=== PATIENT | male | born 1940 | race Caucasian/White ===

== ENCOUNTER 2019-08-08 08:43 | Day surgery (SDC) | payer MEDICARE, BC, SELFPAY ==
[2019-08-07 17:04] VITALS: BMI 25.8
[2019-08-08 09:07] VITALS: BMI 25.4
--- NOTE | 2019-08-08 10:25 | P.PN_ITS ---
Pre-Anesthetic Assessment Pre-Anesthetic Assessment: Height/Weight: Height 1.74 m Weight 77.111 kg Proposed Procedure: Operation Date: 08/08/19 10:30 Proposed Procedures p EGD(Not Applicable) - Wyatt Nielson M.D s Bronchoscopy w/ bronchoalveolar lavage(Not Applicable) - Wyatt Nielson M.D Last intake: Intake Last Liquid Date 08/07/19 Last Liquid Time 19:00 Last Solid Date 08/07/19 Last Solid Time 17:00 Social: Social History: Alcohol and No tobacco Exam: Pre-Anes Outpt Exam: alert, oriented x 3, clear to auscultation bilaterally and regular rate & rhythm Airway: Submandibular: WNL Cervical ROM: Other (decreased) MP: 2 Dentition: Full History/ROS: No significant history except as noted Pulmonary: Pulmonary: Cough CV/HEM: CV/HEM: HTN and Murmur Comments: aortic regurg Musc/skel: Comments: parkinsons Neuropsych: Neuropsych: Dementia Anesthetic Plan: ASA status: III Anesthesia: Anesthesia Evaluation and General Risk of > 500 ml blood loss (7ml/kg in children): No PFSH Anesthesia 2 PFSH: Medical History (Updated 08/08/19 @ 10:26 by Piter Chadwick MD) Anxiety (Acute) Aortic regurgitation (Acute) Basal cell carcinoma (Acute) Bursitis (Acute) Dyslipidemia (Acute) Hypercholesteremia (Acute) Hypertension (Acute) Mild cognitive impairment (Acute) YORDY on CPAP (Acute) Pituitary macroadenoma (Acute) Prostate CA (Acute) Rectal fistula (Acute) SOB (shortness of breath) on exertion (Acute) Surgical History (Updated 08/08/19 @ 10:26 by Piter Chadwick MD) H/O shoulder surgery (Acute) History of back surgery (Acute) History of vocal cord polypectomy (Acute) Family History (Updated 08/07/19 @ 16:51 by Maricel Raymond) Other Alzheimer disease Parkinson disease Social History (Updated 08/07/19 @ 16:51 by Maricel Raymond) Smoking and tobacco status: former smoker Data Anesthesia Cardiac Studies: No Data to Display
[2019-08-08 10:40] VITALS: BP 143/94; PULSE 73; RESP 18; TEMP 36.3; O2SAT 97
--- NOTE | 2019-08-08 10:41 | PM.HPUD ---
H&P update H&P Update: DATE OF SURGERY/PROCEDURE: 08/08/19 DATE H&P PERFORMED: 07/11/19 H&P UPDATE INFORMATION: H&P completed within last 30 days and No changes to prior documentation PLANNED PROCEDURE: Operation Date: 08/08/19 10:30 Proposed Procedures p EGD(Not Applicable) - Wyatt Nielson M.D s Bronchoscopy w/ bronchoalveolar lavage(Not Applicable) - Wyatt Nielson M.D Full H&P Perinent History: Medical/Surgical History: Medical History (Updated 08/08/19 @ 10:26 by Piter Chadwick MD) Anxiety (Acute) Aortic regurgitation (Acute) Basal cell carcinoma (Acute) Bursitis (Acute) Dyslipidemia (Acute) Hypercholesteremia (Acute) Hypertension (Acute) Mild cognitive impairment (Acute) YORDY on CPAP (Acute) Pituitary macroadenoma (Acute) Prostate CA (Acute) Rectal fistula (Acute) SOB (shortness of breath) on exertion (Acute) Family History: Family History (Updated 08/07/19 @ 16:51 by Maricel Raymond) Other Alzheimer disease Parkinson disease Social History: Social History Smoking and tobacco status: former smoker
[2019-08-08] MEDS: sodium chloride 0.9% 1,000 ML 30 ML IV (10:45)
--- NOTE | 2019-08-08 11:18 | PM.OP ---
Operative Report Post-Operative Note: Date of procedure: 08/08/19 Preop Diagnosis: Dysphasia, coughdysphagia, cough Post-op diagnosis: same Post-op Findings: Gastritis with ulceration, cricopharyngeal achalasia Procedure Done: EGD with biopsy distal esophagus and gastric mucosa, flexible fiberoptic bronchoscopy with bronchoalveolar lavage, dilation of esophagus with 58 Frisian dilator Specimens removed/disposition: Biopsy gastric and esophagus Surgeon: Wyatt Nielson Anesthesia: general Complications: None Findings: Gastritis with ulcer, stricture cricopharyngeus Condition: stable Disposition: PACU Operative Report: Brief History: Mr. Weinberg is a 78-year-old male with a known history of Parkinson's who presented with chief complaint of cough aspiration and dysphasia. I discussed the goals risks and alternatives and informed consent was obtained to proceed with surgical evaluation. Procedure: The patient was taken to the operating room and under satisfactory general endotracheal anesthesia the bronchoscope was introduced into the trachea. Right and left bronchopulmonary segments 1 through 10 were examined. The exam was unremarkable. A bronchoalveolar lavage was performed from the right lower lobe and sent for lipid-laden macrophage alone. The gastroscope was then introduced into the post cricoid area. There was a tight stricture at the cricopharyngeus. The esophagus stomach and duodenum were examined the duodenal mucosa were normal there was some hypermotility of the esophageal mucosa with mild distal esophagitis. The gastric mucosa was markedly inflamed with several punctate ulcerations. The valve was normal. Biopsy was taken of the esophagus x2. A biopsy was taken of the distal esophagus x1. Both specimens were sent to pathology. No complications occurred. The patient was then dilated to a 58 Frisian with bougie dilator. A second look revealed no perforation. He was allowed awaken and taken to recovery room where he was observed. During the observation time postoperative care instructions and counseling including detailed written and verbal instruction given to the patient and his . Once both parties verbalized understanding of all instructions and once the patient met discharge criteria he was discharged in satisfactory and stable condition. Coding Level of Care Code Acute Treasury Director for Hammad Toro
[2019-08-08 11:24] VITALS: BP 124/101; PULSE 80; RESP 16; TEMP 36.4; O2SAT 99
[2019-08-08 11:30] VITALS: BP 139/84; PULSE 71; RESP 20; O2SAT 95
[2019-08-08 11:35] VITALS: BP 144/104; PULSE 82; RESP 22; TEMP 36.4; O2SAT 93
--- NOTE | 2019-08-08 11:35 | SUR.PHASEI ---
1124- RECEIVED PATIENT IN PACU FROM OR VIA [facility]. RESP ARE EVEN AND NONLABORED. SIMPLE MASK APPLIED AT 6LPM, SAT 99%. HE IS AWAKE AND ALERT. NO S/S PAIN OR NAUSEA
[2019-08-08 11:48] VITALS: BP 138/87; PULSE 77; RESP 18; TEMP 36.4; O2SAT 93
--- NOTE | 2019-08-08 12:14 | SUR.PHASEI ---
1140- TRANSFERRED PATIENT FROM PACU TO OPS VIA GURNEY. RESP ARE EVEN AND NONLABORED. SAT 93% WITH ROOM AIR. HE IS AWAKE AND ALERT. NO S/S PAIN OR NAUSEA. INTERMITTENT PRODUCTIVE COUGH NOTED. HE IS ABLE TO EXPECTORATE WITHOUT DIFFICULTY. TRANSITION OF CARE TO [facility] BRASWELL
--- NOTE | 2019-08-08 12:14 | SUR.PHASEII ---
PATIENT'S FAMILY SAID WANTED TO SEE HIM ON A FOLLOWUP VISIT. OFFICE CALLED AND AND F/U APPOINTMENT FOR AT 11:00
--- NOTE | 2019-08-08 12:17 | SUR.PHASEII ---
OFFICE OF DR. SHULTZ CALLED BACK AND SAID PATIENT HAS AN APPOINTMENT ON AT 1:30
[2019-08-08 12:28] VITALS: BP 139/79; PULSE 80; RESP 18; O2SAT 95
--- NOTE | 2019-08-08 13:47 | ANE.PACU ---
 Inpatient post-anesthesia follow up: Airway intact: Yes Vital signs: Temperature 97.6 F Pulse Rate [Bilate ral Radial] 80 Respiratory Rate 18 Blood Pressure [Ri ght Arm] 139/79 Blood Pressure [Le ft Arm] 143/94 Pulse Oximetry 95 Oxygen Delivery Me thod Room Air Oxygen Flow Rate 6 Fraction of Inspir ed Oxygen Hydration adequate: Yes Nausea and vomiting: No Mental status: Baseline
== END 2019-08-08 12:35 | disposition home or self-care (01) ==
PROVIDERS: Family Provider Family Medicine; PCP Family Medicine; Visit Provider Otolaryngology
PROC: 0DJ08ZZ Inspection of Upper Intestinal Tract, Via Natural or Artificial Opening Endoscopic (ICD-10-PCS; CPT 43235; principal; 2019-08-08 10:30)
PROC: 0BJ08ZZ Inspection of Tracheobronchial Tree, Via Natural or Artificial Opening Endoscopic (ICD-10-PCS; CPT 31622; 2019-08-08 10:30)
DX: R13.10 Dysphagia, unspecified (principal); R05 Cough; K29.70 Gastritis, unspecified, without bleeding; K25.9 Gastric ulcer, unspecified as acute or chronic, without hemorrhage or perforation; E78.00 Pure hypercholesterolemia, unspecified; I10 Essential (primary) hypertension; G47.33 Obstructive sleep apnea (adult) (pediatric); Z80.42 Family history of malignant neoplasm of prostate; E78.5 Hyperlipidemia, unspecified; G20 Parkinson's disease
CPT/HCPCS: 31624; 43239; 43249; 80500; 88305; J0330; J1100; J2001; J2405; J2704; J3010; J3490; J7030

== ENCOUNTER → 2019-08-30 12:57 | Outpatient (BNVA) | payer MEDICARE, BC, SELFPAY | PROVIDERS: Family Provider Family Medicine; PCP Family Medicine; Referring Provider Family Medicine; Visit Provider Otolaryngology | DX: R13.10 Dysphagia, unspecified (principal); J31.0 Chronic rhinitis | CPT/HCPCS: 99213; 99214 ==

== ENCOUNTER 2019-09-06 15:39 | Outpatient (CLI) | payer MEDICARE, BC, SELFPAY ==
--- NOTE | 2019-09-06 | XR_ITS ---
WS: [id number] PROCEDURE: XR chest 2V* [id number] CLINICAL INFORMATION: EXCESSIVE SLEEPINESS, DIZZINESS, SOB, COUGH COMPARISON: 015 FINDINGS: Heart: Normal cardiac silhouette. Tortuous calcified thoracic aorta. Lungs: Moderate chronic emphysematous changes. No acute pulmonary infiltrates. Bones: Hypertrophic changes thoracic spine. XR/XR chest 2V* [id number] IMPRESSION: No acute chest findings.
== END 2019-09-06 15:40 | disposition home or self-care (01) ==
LOC: RADOUTREAD 15:43
PROVIDERS: Family Provider Family Medicine; PCP Family Medicine; Visit Provider Family Medicine
DX: Z76.89 Persons encountering health services in other specified circumstances (principal)

== ENCOUNTER 2019-09-29 20:00 | Outpatient (CLI) | payer MEDICARE, BC, SELFPAY | END 2019-09-29 20:01 | disposition home or self-care (01) | LOC: SLEEP 10-02 08:03 | PROVIDERS: Family Provider Family Medicine; PCP Family Medicine; Visit Provider Family Medicine | DX: G47.33 Obstructive sleep apnea (adult) (pediatric) (principal) | CPT/HCPCS: 95810; 95811 ==

== ENCOUNTER 2020-05-08 14:31 | Inpatient (IN) | payer MEDICARE, BC, SELFPAY ==
[2020-05-08 14:33] VITALS: BP 139/75; PULSE 75; RESP 18; TEMP 36.4; O2SAT 98; BMI 24.1
[2020-05-08 15:13] LABS: Basophils # 0.1 10^3/uL (0.0-0.1); Eosinophils # 0.1 10^3/uL (0.0-0.8); Eosinophils % 0.6 %; Hematocrit 29.7 % (42.0-52.0); Hemoglobin 8.5 g/dL (11.7-16.6); Lymphocytes # 1.8 10^3/uL (0.8-4.8); Lymphocytes % 20.8 %; Mean Corpuscular HGB Conc 28.6 g/dL (30.0-36.0); Mean Corpuscular Hemoglobin 21.1 pg (28.0-34.0); Mean Corpuscular Volume 73.7 fL (80-94); Mean Platelet Volume 9.9 fL (7.4-10.4); Monocytes # 0.6 10^3/uL (0.2-0.9); Monocytes % 7.6 %; Neutrophils # 5.87 10^3/uL (1.8-7.7); Neutrophils % 69.8 %; Nucleated Red Blood Cells % 0 %; Platelet Count 211 10^3/cmm (130-400); Red Blood Count 4.03 10^6/uL (4.1-5.3); Red Cell Distribution Width 17.8 % (12.1-15.1); White Blood Count 8.4 10^3/uL (4.0-10.0)
[2020-05-08 15:31] LABS: Alanine Aminotransferase 8 U/L (0-41); Alkaline Phosphatase 64 IU/L (40-130); Anion Gap 15.2 (5-19); Aspartate Amino Transferase 11 U/L (0-40); Blood Urea Nitrogen 32 mg/dL (8-23); Calcium 8.8 mg/dL (8.5-10.5); Carbon Dioxide 23 mmol/L (22-29); Chloride 105 mmol/L (98-107); Globulin 1.8 g/dL (1.3-4.6); Glucose 115 mg/dL (65-115); Osmolality Calculated 296 mOsm/kg (285-295); Potassium 4.2 mmol/L (3.5-5.1); Sodium 139 mmol/L (136-145); Total Bilirubin 0.2 mg/dL (0.15-1.2); Total Protein 5.8 g/dL (6.6-8.7)
--- NOTE | 2020-05-08 15:49 | CTR_ITS ---
PROCEDURE INFORMATION: Exam: CT Abdomen And Pelvis With Contrast Exam date and time: 05/08/2020 3:50 PM Age: 79 years old Clinical indication: Other: Gi bleed; Prior surgery; Surgery type: Spine; Patient HX: Decreased hemoglobin with tarry stools. ; Additional info: Abd pain TECHNIQUE: Imaging protocol: Computed tomography of the abdomen and pelvis with intravenous contrast. Radiation optimization: All CT scans at this facility use at least one of these dose optimization techniques: automated exposure control; mA and/or kV adjustment per patient size (includes targeted exams where dose is matched to clinical indication); or iterative reconstruction. Contrast material: OMNI 300; Contrast volume: 95 ml; Contrast route: INTRAVENOUS (IV); COMPARISON: No relevant prior studies available. RADIATION DOSE METRICS: Total DLP (mGy-cm): 525.36 FINDINGS: Liver: There is a right liver cyst measuring 7.2 x 6.6 cm. Gallbladder and bile ducts: Normal. No calcified stones. No ductal dilation. Pancreas: Normal. No ductal dilation. Spleen: Normal. No splenomegaly. Adrenals: Normal. No mass. Kidneys and ureters: There are bilateral benign renal cysts. The there is calcification in the inferior left kidney. No hydronephrosis. Stomach and bowel: Unremarkable. No obstruction. No mucosal thickening. Appendix: No evidence of appendicitis. Intraperitoneal space: Unremarkable. No free air. No significant fluid collection. Vasculature: Unremarkable. No abdominal aortic aneurysm. Lymph nodes: Unremarkable. No enlarged lymph nodes. Urinary bladder: Unremarkable as visualized. Reproductive: Unremarkable as visualized. Bones/joints: Unremarkable. No acute fracture. Soft tissues: There is fat in the left inguinal canal. CT/CT abdomen pelvis w con* [id number] IMPRESSION: There are no acute concerning abnormalities. COMMENTS: Consistent with the [employer]'s Incidental Findings Committee white paper (J Am Eusebio Radiol 2018): Any incidental renal lesion less than 1 cm or classified as too small to characterize, or any incidental cystic renal lesion characterized as simple-appearing, is likely benign. No follow-up imaging is recommended for these lesions per consensus recommendations based on imaging criteria. Radiation Dose CTDIVOL = (mGy): DLP = 525.36 (mGy-cm)
--- NOTE | 2020-05-08 15:50 | W.ED.GIBLEED ---
HPI - GI Bleed General: Chief complaint: GI Bleed Stated complaint: abnormal labs/possible anemia and stomach bleed Time Seen by Provider: 05/08/20 15:34 History of Present Illness: HPI Narrative: 79-year-old male comes in complaining of dark black tarry stools for the last couple of days. Patient had labs drawn at his primary care doctor and had significant anemia this morning. He had another adult black tarry stool while he was in the waiting room. He has been lightheaded and dizzy and weak feeling as well. He does take Naprosyn on a regular basis twice a day. His hemoglobin in the emergency room is down to 8.5 with a hematocrit of 29.7. He does not list any other blood thinners on his medicine list. MD complaint: other (Black tarry stools) Onset (ago): day(s) Pain Consistency: intermittent and now resolved Severity: mild Relieving factors: none Exacerbating factors: none Context: history of GI bleed Associated symptoms: Reports abdominal pain, nausea and poor appetite; Denies chills, easy bruising, epistaxis, fever(s), headache(s), malaise, other bleeding, rash, syncope, vomiting or weakness Review of Systems Const: Denies: fever(s), chills or malaise ENMT: Denies: epistaxis Card: Denies: syncope Resp: Denies: dyspnea, productive cough or non-productive cough GI: Reports: abdominal pain and nausea; Denies: vomiting : Denies: flank pain, dysuria, urinary frequency or urinary urgency Skin/Breast: Denies: rash Neuro: Denies: headache(s) Jai/Lymph: Denies: easy bruising PFS ED PFSH: Medical History (Updated 05/13/20 @ 15:47 by Dash Butterfield DO) Acute upper gastrointestinal bleeding Anemia Anemia due to GI blood loss Anxiety Aortic regurgitation Basal cell carcinoma Bursitis Dyslipidemia Hypercholesteremia Hypertension Hypertension Mild cognitive impairment YORDY on CPAP Pituitary macroadenoma Prostate CA Rectal fistula Rhinitis SOB (shortness of breath) on exertion Surgical History H/O shoulder surgery History of back surgery History of vocal cord polypectomy Family History Other Alzheimer disease Parkinson disease Social History Smoking and tobacco status: former smoker Physical Exam Const: COMMON NORMALS: no acute distress GENERAL APPEARANCE: cooperative and comfortable ORIENTATION/CONSCIOUSNESS: Yes awake, Yes oriented to person, Yes oriented to place and Yes oriented to time HENMT: COMMON NORMALS: normocephalic, atraumatic and hearing grossly normal bilaterally HEAD & SCALP: normocephalic and atraumatic Eye: COMMON NORMALS: Equal, round and reactive pupils present, EOMs intact bilaterally, conjunctivae normal and no scleral icterus CONJUNCTIVA: Yes conjunctivae normal PUPIL: Yes Equal, round and reactive pupils present Neck/C-Spine: COMMON NORMALS: full ROM, no lymphadenopathy, supple and no JVD Lymph: LYMPHATIC: no lymphadenopathy noted and no lymphedema noted Resp: COMMON NORMALS: normal respiratory effort, No retractions, No use of accessory muscles and clear to auscultation bilaterally AUSCULTATION: clear to auscultation bilaterally Cardio: COMMON NORMALS: no JVD, regular rate, regular rhythm and No murmurs present (Cardio) RATE: regular rate RHYTHM: regular rhythm GI: COMMON NORMALS: Soft to palpation and No hepatosplenomegaly present AUSCULTATION: Yes normoactive bowel sounds PALPATION: Yes Soft to palpation, Yes Tenderness to palpation present (GI) (Epigastric), No Guarding due to palpation present (GI) and Yes No hepatosplenomegaly present Extremity: COMMON NORMALS: normal to inspection, capillary refill normal, no clubbing, cyanosis or edema, no calf tenderness and no pedal edema Neuro: SENSORIUM/ORIENTATION: Yes oriented to person, Yes oriented to place and Yes oriented to time Skin: COMMON NORMALS: no rashes or lesions noted GENERAL SKIN EXAM: no rashes or lesions noted Course Vital Signs: Vital signs: Vital Signs Temperature 97.7 F 05/11/20 16:50 Pulse Rate 86 05/11/20 16:50 Respiratory Rate 18 05/11/20 16:50 Blood Pressure 151/70 05/11/20 16:50 Pulse Oximetry 98 05/11/20 16:50 MDM - GI Bleed MDM Narrative: Medical decision making narrative: Revewied findings with pt and with Dr. Fontaine. Will admit to the floor. Pt will likely need and EGD Lab Data: Labs: Lab Results 05/08/20 05/08/20 05/08/20 Range/Units 15:00 15:00 15:00 WBC 8.4 (4.0-10.0) 10^3/ uL RBC 4.03 L (4.1-5.3) 10^6/u L Hgb 8.5 L (11.7-16.6) g/dL Hct 29.7 L (42.0-52.0) % MCV 73.7 L (80-94) fL MCH 21.1 L (28.0-34.0) pg MCHC 28.6 L (30.0-36.0) g/dL RDW 17.8 H (12.1-15.1) % Plt Count 211 (130-400) 10^3/c mm MPV 9.9 (7.4-10.4) fL Neut % (Auto) 69.8 % Lymph % (Auto) 20.8 % White % (Auto) 7.6 % Eos % (Auto) 0.6 % Baso % (Auto) 1.0 % Neut # (Auto) 5.87 (1.8-7.7) 10^3/u L Lymph # (Auto) 1.8 (0.8-4.8) 10^3/u L White # (Auto) 0.6 (0.2-0.9) 10^3/u L Eos # (Auto) 0.1 (0.0-0.8) 10^3/u L Baso # (Auto) 0.1 (0.0-0.1) 10^3/u L Nucleated RBC % (a uto) 0 % Nucleated RBCs # 0.0 /100WBC PT 13.10 (12.1-14.9) SECO NDS INR 0.96 (0.8-1.2) Sodium 139 (136-145) mmol/L Potassium 4.2 (3.5-5.1) mmol/L Chloride 105 (98-107) mmol/L Carbon Dioxide 23 (22-29) mmol/L Anion Gap 15.2 (5-19) BUN 32 H (8-23) mg/dL Creatinine 1.0 (0.7-1.2) mg/dL GFR Calculation Not Reportable Glucose 115 (65-115) mg/dL Calculated Osmolal ity 296 H (285-295) mOsm/k g Calcium 8.8 (8.5-10.5) mg/dL Total Bilirubin 0.2 (0.15-1.2) mg/dL AST 11 (0-40) U/L ALT 8 (0-41) U/L Alkaline Phosphata se 64 (40-130) IU/L Total Protein 5.8 L (6.6-8.7) g/dL Albumin 4.0 (3.5-5.2) g/dL Globulin 1.8 (1.3-4.6) g/dL Blood Type Rho(D) Type Antibody Screen Crossmatch 05/08/20 Range/Units 15:00 WBC (4.0-10.0) 10^3/ uL RBC (4.1-5.3) 10^6/u L Hgb (11.7-16.6) g/dL Hct (42.0-52.0) % MCV (80-94) fL MCH (28.0-34.0) pg MCHC (30.0-36.0) g/dL RDW (12.1-15.1) % Plt Count (130-400) 10^3/c mm MPV (7.4-10.4) fL Neut % (Auto) % Lymph % (Auto) % White % (Auto) % Eos % (Auto) % Baso % (Auto) % Neut # (Auto) (1.8-7.7) 10^3/u L Lymph # (Auto) (0.8-4.8) 10^3/u L White # (Auto) (0.2-0.9) 10^3/u L Eos # (Auto) (0.0-0.8) 10^3/u L Baso # (Auto) (0.0-0.1) 10^3/u L Nucleated RBC % (a uto) % Nucleated RBCs # /100WBC PT (12.1-14.9) SECO NDS INR (0.8-1.2) Sodium (136-145) mmol/L Potassium (3.5-5.1) mmol/L Chloride (98-107) mmol/L Carbon Dioxide (22-29) mmol/L Anion Gap (5-19) BUN (8-23) mg/dL Creatinine (0.7-1.2) mg/dL GFR Calculation Glucose (65-115) mg/dL Calculated Osmolal ity (285-295) mOsm/k g Calcium (8.5-10.5) mg/dL Total Bilirubin (0.15-1.2) mg/dL AST (0-40) U/L ALT (0-41) U/L Alkaline Phosphata se (40-130) IU/L Total Protein (6.6-8.7) g/dL Albumin (3.5-5.2) g/dL Globulin (1.3-4.6) g/dL Blood Type O Positive Rho(D) Type Positive Antibody Screen Negative Crossmatch See Detail Discharge Plan Discharge Patient Disposition: Admitted As Inpatient Admit Provider: Olegario Fontaine Clinical Impression: Acute upper gastrointestinal bleeding Condition: Stable Referrals: Sebastian Zafar MD [Primary Care Provider] - 4-7 days (Please contact Dr. Zafar office on Wednesday to make an appointment to be seen with in 4 to 7 days. ) Discharge Diet: Regular Discharge Activity: Resume usual activity Patient Instructions: Pantoprazole (By mouth), GI Bleeding Interventions: ED Discharge Assessment Last Done: 05/08/20 18:48 ED Charges Last Done: 05/08/20 18:48 Discharge Date/Time: 05/08/20 18:48 Coding Level of Care Code ED Portable Pinch Riveter for Chg Fwd Exam Comprehensive
[2020-05-08] MEDS: iohexol 300 mg/mL 100 mL Btl IV (15:54)
[2020-05-08 16:24] LABS: INR 0.96 (0.8-1.2)
[2020-05-08] MEDS: pantoprazole 40 mg SDV 80 MG IVP (16:33)
[2020-05-08 16:56] VITALS: BP 123/67; PULSE 78; RESP 18; O2SAT 98
--- NOTE | 2020-05-08 18:41 | PC.NURSE ---
pt report called to Martha MULLER in SBAR format,
--- NOTE | 2020-05-08 19:03 | P.HP_ITS ---
Providers/Chief Complaint Admitting Physician: Olegario Fontaine MD Chief Complaint: abnormal labs/possible anemia and stomach bleed History of Present Illness 79-year-old male with past medical history of hypertension, Ca prostate, obstructive sleep apnea, chronic back pain, came in with chief complaint of passing black tarry stools, for the last 3 days, he has been taking naproxen twice daily for years for his chronic back pain.He recently saw his PCP for black tarry stool, his naproxen was stopped. In the ER he was worked up for possible UGIB 2/2 to chronic NSAID use. Vitals and labs have been reviewed. Review of Systems General: Reports: 10 or more systems reviewed and unremarkable except in HPI and below Const: Denies: fever(s), chills, body aches, change in appetite or diaphoresis Card: Denies: palpitations, edema, swelling of feet/ankles, dyspnea on exertion, orthopnea or leg pain with exertion Resp: Denies: dyspnea, productive cough, wheezing or pain on inspiration GI: Denies: abdominal pain, nausea, vomiting, diarrhea or constipation : Denies: flank pain or difficulty urinating Musc: Denies: back pain, extremity pain or extremity swelling Neuro: Denies: headache(s), difficulty walking or confusion Medications/Allergies Home Medications Medication Instructions Recorded Confirmed Last Taken Type Multi Vitamin 9 mg PO DAILY 08/07/19 05/08/20 05/07/20 History Zyrtec 10 mg PO DAILY 08/07/19 05/08/20 05/07/20 History donepezil 10 mg PO DAILY 08/07/19 05/08/20 05/07/20 History escitalopram oxalate 20 mg PO DAILY 08/07/19 05/08/20 05/07/20 History irbesartan See Rx Instructions .ROUTE .COMPLEX 08/07/19 05/08/20 05/07/20 History magnesium oxide 250 mg PO DAILY 08/07/19 05/08/20 05/07/20 History naproxen [Naprosyn] 500 mg PO BID PRN 08/07/19 05/08/20 05/07/20 History azelastine 137 mcg (0.1 %) nasal 1 spray INTRANASAL BID 08/30/19 05/08/20 Unknown History spray aerosol fluticasone propionate 50 1 spray INTRANASAL BID 08/30/19 05/08/2005/07/20 History mcg/actuation nasal spray,suspension clonazepam 0.5 mg tablet 0.5 mg PO DAILY #30 tab 12/04/19 05/08/20 05/07/20 Rx dextroamphetamine-amphetamine 10 mg PO DAILY 05/08/20 05/08/20 05/07/20 History Allergies Allergy/AdvReac Type Severity Reaction Status Date / Time No Known Allergies Allergy Verified 05/08/20 14:46 PFSH Acute PFSH: Medical History Anxiety Aortic regurgitation Basal cell carcinoma Bursitis Dyslipidemia Hypercholesteremia Hypertension Mild cognitive impairment YORDY on CPAP Pituitary macroadenoma Prostate CA Rectal fistula Rhinitis SOB (shortness of breath) on exertion Surgical History H/O shoulder surgery History of back surgery History of vocal cord polypectomy Family History Other Alzheimer disease Parkinson disease Social History Smoking and tobacco status: former smoker Vitals/I&O/Wt Last Vital Signs Temp 97.6 F 05/08/20 14:33 Pulse 78 05/08/20 16:56 Resp 18 05/08/20 16:56 BP 123/67 05/08/20 16:56 Pulse Ox 98 05/08/20 16:56 Weight last 48 hrs Weight 73.028 kg Physical Exam Const: COMMON NORMALS: patient oriented x3 HENMT: COMMON NORMALS: normocephalic, atraumatic, hearing grossly normal bilaterally and external ears normal HEAD & SCALP: normocephalic and atraumatic EXTERNAL EAR: Yes external ears normal Eye: COMMON NORMALS: no scleral icterus GENERAL EYE: appearance normal, both eyes and all related structures Chest: COMMONS NORMALS: normal inspection of the chest and normal palpation of entire chest wall CHEST: Yes Symmetrical chest wall rise Resp: COMMON NORMALS: normal respiratory effort, No retractions, No use of accessory muscles and clear to auscultation bilaterally EFFORT & INSPECTION: Yes symmetric chest movement AUSCULTATION: clear to auscultation bilaterally Cardio: COMMON NORMALS: regular rate, regular rhythm, S1 normal heart sound present, S2 normal heart sound present, No gallops present (Cardio), No murmurs present (Cardio), No rub (Cardio) and Peripheral pulses 2+ throughout RATE: regular rate RHYTHM: regular rhythm HEART SOUNDS: S1 normal heart sound present and S2 normal heart sound present PERIPHERAL PULSES: Peripheral pulses 2+ throughout GI: COMMON NORMALS: Normal to inspection, nondistended, normoactive bowel sounds present, Soft to palpation, non-tender, No hepatosplenomegaly present and no masses AUSCULTATION: Yes normoactive bowel sounds PALPATION: Yes Soft to palpation and Yes No hepatosplenomegaly present RECTAL EXAM: Yes deferred Extremity: COMMON NORMALS: no clubbing, cyanosis or edema and no pedal edema Neuro: COMMON NORMALS: patient oriented x3 Data : 05/08/20 15:00 05/08/20 15:00 CT Abd/Pel: I personally reviewed and interpreted this imaging study as follows: My impression: There is no acute pathology. Radiologist's impression: There are no acute concerning abnormalities. A&P Assessment and plan (1) Acute upper gastrointestinal bleeding: came in with chief complaint of passing black tarry stools, for the last 3 days, he has been taking naproxen twice daily for years for his chronic back pain. H/H is currently at 8.5/29.Monitor CBC NPO for now for possible EGD Protonix 40 mg I.V Daily Status: Acute (2) Anemia: Anemia of blood loss. Monitor CBC Plan for possible EGD Status: Acute (3) Hypertension: Currently blood Pressure well controlled. will start him on his home medications. Status: Acute Additional A&P Information DVT PPX: ON SCD Code status : full code Disposition:Discharge to home after possible EGD. Attestations Medical Necessity Statement*: Patient needs more than 2 nights of hospital stay for GI bleed work-up. Coding Level of Care Code Acute Sales Utility Representative for g Fwd Diagnoses Acute upper gastrointestinal bleeding K92.2 Anemia D64.9 Hypertension I10
[2020-05-08 20:00] VITALS: BP 145/70; PULSE 76; RESP 18; TEMP 36.8; O2SAT 93
[2020-05-08] MEDS: D5-NS 0.45% + KCL 20 mEq 20 MEQ/1,000 ML BAG 100 MEQ IV (20:53)
[2020-05-09] VITALS (12 sets, daily range): BP systolic 100–141; BP diastolic 61–86; PULSE 54–111; RESP 14–18; TEMP 36.1–37; O2SAT 90–100
[2020-05-09 05:43] LABS: Basophils # 0.1 10^3/uL (0.0-0.1); Basophils % 0.9 %; Eosinophils # 0.1 10^3/uL (0.0-0.8); Eosinophils % 1.2 %; Hematocrit 26.5 % (42.0-52.0); Hemoglobin 7.7 g/dL (11.7-16.6); Lymphocytes # 1.8 10^3/uL (0.8-4.8); Lymphocytes % 21.8 %; Mean Corpuscular HGB Conc 29.1 g/dL (30.0-36.0); Mean Corpuscular Hemoglobin 21.4 pg (28.0-34.0); Mean Corpuscular Volume 73.6 fL (80-94); Mean Platelet Volume 10.4 fL (7.4-10.4); Monocytes # 0.9 10^3/uL (0.2-0.9); Monocytes % 10.9 %; Neutrophils # 5.32 10^3/uL (1.8-7.7); Neutrophils % 64.8 %; Nucleated Red Blood Cells % 0 %; Platelet Count 183 10^3/cmm (130-400); Red Cell Distribution Width 17.9 % (12.1-15.1); White Blood Count 8.2 10^3/uL (4.0-10.0)
[2020-05-09 06:22] LABS: INR 1.11 (0.8-1.2); Partial Thromboplastin Time 26.3 SECONDS (23.9-36.7)
[2020-05-09 06:29] LABS: Anion Gap 14.7 (5-19); Blood Urea Nitrogen 24 mg/dL (8-23); Calcium 8.6 mg/dL (8.5-10.5); Carbon Dioxide 23 mmol/L (22-29); Chloride 103 mmol/L (98-107); Glucose 109 mg/dL (65-115); Osmolality Calculated 289 mOsm/kg (285-295); Potassium 3.7 mmol/L (3.5-5.1); Sodium 137 mmol/L (136-145)
[2020-05-09 06:59] LABS: Add Urine Microscopic? NO
[2020-05-09 07:23] LABS: Bilirubin Urine Neg (Negative); Blood Urine Neg (Negative); Glucose Urine UA Norm (Normal); Ketones Urine Negative (Negative); Leukocyte Esterase Urine Negative (Negative); Nitrate Urine Negative (Negative); Protein Urine Neg (Negative); Specific Gravity, Urine 1.015 (1.005-1.030); Urine Appearance Clear (CLEAR); Urine Color Yellow (Yellow); Urobilinogen Urine Norm (Negative); pH Urine 5 (5-7)
[2020-05-09] MEDS: fluticasone nasal spray 16gm Btl 1 SPRAY INTRANASAL ×2 (09:01→16:01)
[2020-05-09] MEDS: cetirizine 10 mg Tablet PO (09:01)
[2020-05-09] MEDS: escitalopram 10 mg Tablet 20 MG PO (09:01)
[2020-05-09] MEDS: D5-NS 0.45% + KCL 20 mEq 20 MEQ/1,000 ML BAG 100 MEQ IV (09:01)
[2020-05-09] MEDS: CLONazepam 0.5 mg Tablet PO (09:01)
[2020-05-09] MEDS: lisinopril 20 mg Tablet PO (09:01)
[2020-05-09] MEDS: donepezil 5 MG Tablet 10 MG PO (09:01)
[2020-05-09] MEDS: pantoprazole 40 mg SDV IVP (10:15)
--- NOTE | 2020-05-09 10:33 | P.CONIM_ITS ---
Providers/Reason For Consult Consulting Physican/Specialty*: Internal medicine/endoscopy Reason for Consult*: Significantly low hemoglobin and black tarry stools. Attending Physician: Olegario Fontaine MD Primary Care Provider: Sebastian Zafar MD History of Present Illness History of Present Illness Uche Weinberg is a 79 year old male with 3-day history of black tarry stools. He has no history of a GI bleed at any point that he knows of. He saw his primary care doctor Dr. Zafar and he stopped his naproxen which apparently Mr. Weinberg has been taking for many years. Dr. Fontaine called me this morning with Mr. Weinberg story and was in hopes that we could explore the etiology for his presumed upper GI bleed. Oddly, Mr. Weinberg has absolutely no GI symptoms save for the melena. He denies fever chills nausea vomiting chest pain shortness of breath epigastric pain heartburn. Review of Systems General: Reports: 10 or more systems reviewed and unremarkable except in HPI and below Meds/Allergies Home Medications and Allergies Home Medications Medication Instructions Recorded Confirmed Last Taken Type Multi Vitamin 9 mg PO DAILY 08/07/19 05/08/20 05/07/20 History Zyrtec 10 mg PO DAILY 08/07/19 05/08/20 05/07/20 History donepezil 10 mg PO DAILY 08/07/19 05/08/20 05/07/20 History escitalopram oxalate 20 mg PO DAILY 08/07/19 05/08/20 05/07/20 History irbesartan See Rx Instructions .ROUTE .COMPLEX 08/07/19 05/08/20 05/07/20 History magnesium oxide 250 mg PO DAILY 08/07/19 05/08/20 05/07/20 History naproxen [Naprosyn] 500 mg PO BID PRN 08/07/19 05/08/20 05/07/20 History azelastine 137 mcg (0.1 %) nasal 1 spray INTRANASAL BID 08/30/19 05/08/20 Unknown History spray aerosol fluticasone propionate 50 1 spray INTRANASAL BID 08/30/19 05/08/20 05/07/20 History mcg/actuation nasal spray,suspension clonazepam 0.5 mg tablet 0.5 mg PO DAILY #30 tab 12/04/19 05/08/20 05/07/20 Rx dextroamphetamine-amphetamine 10 mg PO DAILY 05/08/20 05/08/20 05/07/20 History Allergies Allergy/AdvReac Type Severity Reaction Status Date / Time No Known Allergies Allergy Verified 05/08/20 14:46 Current Medications Current Medications Generic Name Dose Route Start Last Admin Trade Name Freq PRN Reason Stop Dose Admin Cetirizine HCl 10 mg 05/09/20 09:00 05/09/20 09:01 Zyrtec PO 10 mg DAILY OTONIEL Administration Clonazepam 0.5 mg 05/09/20 09:00 05/09/20 09:01 Klonopin PO 0.5 mg DAILY OTONIEL Administration Donepezil HCl 10 mg 05/09/20 09:00 05/09/20 09:01 Aricept PO 10 mg DAILY OTONIEL Administration Escitalopram Oxalate 20 mg 05/09/20 09:00 05/09/20 09:01 Lexapro PO 20 mg DAILY OTONIEL Administration Fluticasone Propionate 1 spray 05/09/20 09:00 05/09/20 09:01 Flonase INTRANASAL 1 spray BID OTONIEL Administration Potassium Chloride/Dextrose/Sod Cl 20 meq in 1,000 mls @ 100 mls/hr 05/08/20 18:53 05/09/20 09:01 D5-Ns 0.45% + Kcl 20 Meq IV 100 mls/hr .Q10H OTONIEL Administration Lisinopril 20 mg 05/09/20 09:00 05/09/20 09:01 Prinivil PO 20 mg DAILY OTONIEL Administration Pantoprazole Sodium 40 mg 05/09/20 09:00 05/09/20 10:15 Protonix IVP 40 mg DAILY OTONIEL Administration PFSH Acute PFSH: Medical History Anxiety Aortic regurgitation Basal cell carcinoma Bursitis Dyslipidemia Hypercholesteremia Hypertension Mild cognitive impairment YORDY on CPAP Pituitary macroadenoma Prostate CA Rectal fistula Rhinitis SOB (shortness of breath) on exertion Surgical History H/O shoulder surgery History of back surgery History of vocal cord polypectomy Family History Other Alzheimer disease Parkinson disease Social History Smoking and tobacco status: former smoker Vitals/I&O/Wt Last Vital Signs Temp 97.7 F 05/09/20 08:00 Pulse 54 L 05/09/20 08:00 Resp 18 05/09/20 08:00 BP 136/86 05/09/20 08:00 Pulse Ox 98 05/09/20 07:56 05/08/20 05/09/20 05/09/20 22:59 06:59 14:59 Intake Total 1000 / 1000 Output Total 0 / 0 350 / 350 Balance 1000 / 1000 -350 / -350 Weight last 48 hrs Weight 161 lb Physical Exam Const: COMMON NORMALS: no acute distress, alert and well nourished GENERAL APPEARANCE: cooperative, well kempt, well developed and well hydrated; does not appear older than stated age ORIENTATION/CONSCIOUSNESS: Yes oriented to person, Yes oriented to place and Yes oriented to time HENMT: COMMON NORMALS: normocephalic, external ears normal and TM's normal bilaterally HEAD & SCALP: normocephalic EXTERNAL EAR: Yes external ears normal TYMPANIC MEMBRANE: TM's normal bilaterally MOUTH: Normal oral and palatal mucosa present Eye: COMMON NORMALS: Equal, round and reactive pupils present GENERAL EYE: appearance normal, both eyes and all related structures and normal light reflex VISUAL ACUITY: Yes acuity normal PUPIL: Yes Equal, round and reactive pupils present DIRECT OPHTHALMOSCOPY: Yes normal light reflex Neck/C-Spine: COMMON NORMALS: full ROM, no lymphadenopathy, supple, no JVD, Thyroid normal and No carotid bruits GENERAL: Yes trachea midline THYROID: Thyroid normal, no masses and nontender Lymph: LYMPHATIC: no lymphadenopathy noted Chest: CHEST: Yes Symmetrical chest wall rise Resp: COMMON NORMALS: normal respiratory effort and clear to auscultation bilaterally AUSCULTATION: clear to auscultation bilaterally Cardio: COMMON NORMALS: no JVD, regular rhythm and No murmurs present (Cardio) PALPATION: normal PMI RHYTHM: regular rhythm GI: COMMON NORMALS: non-tender, no masses and no bruits INSPECTION: Yes normal to inspection, No scar and No striae AUSCULTATION: Yes normoactive bowel sounds PALPATION: No Guarding due to palpation present (GI), No Rigid due to palpation, No Hernia present and No Rebound tenderness present PERCUSSION: normal to percussion RECTAL EXAM: Yes deferred Back/Pelvis: COMMON NORMALS: thoracic and lumbar spine normal to inspection GENERAL BACK: No tenderness Extremity: COMMON NORMALS: normal to inspection, no clubbing, cyanosis or edema and no calf tenderness Neuro: SENSORIUM/ORIENTATION: Yes alert, Yes oriented to person, Yes oriented to place and Yes oriented to time CRANIAL NERVES: Yes CN normal except as noted MOTOR EXAM: 5/5 motor strength present throughout Psych: COMMON NORMALS: mental status grossly normal APPEARANCE: Yes grossly normal and Yes well kempt ATTITUDE: Yes calm Skin: COMMON NORMALS: turgor normal GENERAL SKIN EXAM: turgor normal and no scars LESIONS: no lesions TRAUMA: no lacerations or abrasions A&P Assessment and plan (1) Anemia due to GI blood loss: We will proceed with prompt upper endoscopy. Mr. Weinberg claims to be current on his colonoscopy. 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
--- NOTE | 2020-05-09 11:04 | PC.CHAP ---
Pastoral Care Encounter/Spiritual Assessment Type of Contact [] Declined primary therapist visit [] Patient/Family/Request visit [] Outpatient visit [] Follow-up visit [] Physician referral [] Code/Alert [x] Routine visit [] Staff referral [] Actively dying [] Patient sleeping [] Family support [] [] Out of room [] Palliative care [] [x] Receiving care in room [] Pre-surgical visit [] Trauma [] Long length of stay [] ICU visit [] Other: Relational/Emotional Strength [x] Patient feels connected with others/family/visitors/staff [] Distress [] Loneliness/isolation [] Abandonment Spirituality of Patient [] Person of Abril [] Attends Druze of their Abril [] Believes in Prayer [] Reads Bible or Christian materials [] There are Spiritual issues to be addressed Motion Pictures Cartoonist Interventions [] Prayer [] Active listening [] Non-anxious presence [] Spiritual/emotional support [] Crisis/trauma care [] Spiritual counseling [] Bereavement support [] Provided bereavement packet [] Provided Bible/devotional materials [] Provided toy/stuffed animal, coloring book to patient or family member [] Provided Communion [] Anointing/[place] [] Salvation [] Completed spiritual assessment [] Other: Impact on Illness or Injury [] Angry [] Fearful [x] Anxious [] Often cries [] Exhaustion [] Unable to work [] Unable to attend muslim [] Unable to walk/stand [] Unable to read [] Unable to drive [] Unable to eat/drink [] Unable to sleep [] Unable to be with family [] Patient intubated [] Other: Summary Going to surgery today, has a good attitude Time spent with patient 10 mins
--- NOTE | 2020-05-09 12:00 | P.ANESASSM_ITS ---
Pre-Anesthetic Assessment Pre-Anesthetic Assessment: Height/Weight: Height 1.74 m Weight 73.028 kg Temp Pulse Resp BP Pulse Ox 97.5 F L 54 L 18 118/65 98 05/09/20 11:58 05/09/20 11:58 05/09/20 11:58 05/09/20 11:58 05/09/20 11:58 Preop Diagnosis: Dysphasia, coughdysphagia, cough Proposed Procedure: Operation Date: 05/09/20 12:00 Proposed Procedures p EGD(Not Applicable) - John Mayen MD Familial anesthetic complications: None Was Beta Radha taken within 24 hours: N/A Last intake: NPO > 8 hrs Social: Social History: No alcohol and No tobacco Comment: former smoker Exam: Pre-Anes Outpt Exam: alert, oriented x 3, clear to auscultation bilaterally and regular rate & rhythm Airway: Cervical ROM: WNL MP: 2 Dentition: Full Pulmonary: Pulmonary: OSORIO and Sleep apnea (cpap) CV/HEM: CV/HEM: Anemia, HTN and Murmur Comments: echo 2015 - EF 63%, Mod AVR, mild TVR and MVR Metabolic: Metabolic: Hyperlipidemia Neuropsych: Comments: hx pituitary macroadenoma parkinson's disease Anesthetic Plan: ASA status: 3 Anesthesia: MAC Risk of > 500 ml blood loss (7ml/kg in children): No Meds/Allergies Current Medications: Current Medications Generic Name Dose Route Start Last Admin Trade Name Freq PRN Reason Stop Dose Admin Cetirizine HCl 10 mg 05/09/20 09:00 05/09/20 09:01 Zyrtec PO 10 mg DAILY OTONIEL Administration Clonazepam 0.5 mg 05/09/20 09:00 05/09/20 09:01 Klonopin PO 0.5 mg DAILY OTONIEL Administration Donepezil HCl 10 mg 05/09/20 09:00 05/09/20 09:01 Aricept PO 10 mg DAILY OTONIEL Administration Escitalopram Oxala te 20 mg 05/09/20 09:00 05/09/20 09:01 Lexapro PO 20 mg DAILY OTONIEL Administration Fluticasone Propio silvia 1 spray 05/09/20 09:00 05/09/20 09:01 Flonase INTRANASAL 1 spray BID OTONIEL Administration Potassium Chloride /Dextrose/Sod Cl 20 meq in 1,000 m ls @ 100 mls/hr 05/08/20 18:53 05/09/20 09:01 D5-Ns 0.45% + Harvey l 20 Meq IV 100 mls/hr .Q10H OTONIEL Administration Lisinopril 20 mg 05/09/20 09:00 05/09/20 09:01 Prinivil PO 20 mg DAILY OTONIEL Administration Pantoprazole Sodiu m 40 mg 05/09/20 09:00 05/09/20 10:15 Protonix IVP 40 mg DAILY OTONIEL Administration PFSH Anesthesia PFSH: Medical History Anxiety Aortic regurgitation Basal cell carcinoma Bursitis Dyslipidemia Hypercholesteremia Hypertension Mild cognitive impairment YORDY on CPAP Pituitary macroadenoma Prostate CA Rectal fistula Rhinitis SOB (shortness of breath) on exertion Surgical History H/O shoulder surgery History of back surgery History of vocal cord polypectomy Family History Other Alzheimer disease Parkinson disease Social History Smoking and tobacco status: former smoker Data Anesthesia CBC & Chem 7: 05/09/20 04:27 05/09/20 04:27 Other Labs: Laboratory Results - last 48 hr 05/08/20 05/08/20 05/08/20 15:00 15:00 15:00 WBC 8.4 RBC 4.03 L Hgb 8.5 L Hct 29.7 L MCV 73.7 L MCH 21.1 L MCHC 28.6 L RDW 17.8 H Plt Count 211 MPV 9.9 Neut % (Auto) 69.8 Lymph % (Auto) 20.8 [place] % (Auto) 7.6 Eos % (Auto) 0.6 Baso % (Auto) 1.0 Neut # (Auto) 5.87 Lymph # (Auto) 1.8 [place] # (Auto) 0.6 Eos # (Auto) 0.1 Baso # (Auto) 0.1 Nucleated RBC % (auto) 0 Nucleated RBCs # 0.0 PT 13.10 INR 0.96 APTT Sodium 139 Potassium 4.2 Chloride 105 Carbon Dioxide 23 Anion Gap 15.2 BUN 32 H Creatinine 1.0 GFR Calculation Not Reportable Glucose 115 Calculated Osmolality 296 H Calcium 8.8 Total Bilirubin 0.2 AST 11 ALT 8 Alkaline Phosphatase 64 Total Protein 5.8 L Albumin 4.0 Globulin 1.8 Urine Color Urine Appearance Urine pH Ur Specific [place] Urine Protein Urine Glucose (UA) Urine Ketones Urine Blood Urine Nitrate Urine Bilirubin Urine Urobilinogen Ur Leukocyte Esterase 05/09/20 05/09/20 05/09/20 04:27 04:27 04:27 WBC 8.2 RBC 3.60 L Hgb 7.7 L Hct 26.5 L MCV 73.6 L MCH 21.4 L MCHC 29.1 L RDW 17.9 H Plt Count 183 MPV 10.4 Neut % (Auto) 64.8 Lymph % (Auto) 21.8 [place] % (Auto) 10.9 Eos % (Auto) 1.2 Baso % (Auto) 0.9 Neut # (Auto) 5.32 Lymph # (Auto) 1.8 [place] # (Auto) 0.9 Eos # (Auto) 0.1 Baso # (Auto) 0.1 Nucleated RBC % (auto) 0 Nucleated RBCs # 0.0 PT 14.40 INR 1.11 APTT 26.3 Sodium 137 Potassium 3.7 Chloride 103 Carbon Dioxide 23 Anion Gap 14.7 BUN 24 H Creatinine 1.0 GFR Calculation Not Reportable Glucose 109 Calculated Osmolality 289 Calcium 8.6 Total Bilirubin AST ALT Alkaline Phosphatase Total Protein Albumin Globulin Urine Color Urine Appearance Urine pH Ur Specific [place] Urine Protein Urine Glucose (UA) Urine Ketones Urine Blood Urine Nitrate Urine Bilirubin Urine Urobilinogen Ur Leukocyte Esterase 05/09/20 06:40 WBC RBC Hgb Hct MCV MCH MCHC RDW Plt Count MPV Neut % (Auto) Lymph % (Auto) [place] % (Auto) Eos % (Auto) Baso % (Auto) Neut # (Auto) Lymph # (Auto) [place] # (Auto) Eos # (Auto) Baso # (Auto) Nucleated RBC % (auto) Nucleated RBCs # PT INR APTT Sodium Potassium Chloride Carbon Dioxide Anion Gap BUN Creatinine GFR Calculation Glucose Calculated Osmolality Calcium Total Bilirubin AST ALT Alkaline Phosphatase Total Protein Albumin Globulin Urine Color Yellow Urine Appearance Clear Urine pH 5 Ur Specific [place] 1.015 Urine Protein Neg Urine Glucose (UA) Norm Urine Ketones Negative Urine Blood Neg Urine Nitrate Negative Urine Bilirubin Neg Urine Urobilinogen Norm Ur Leukocyte Esterase Negative Cardiac Studies: No Data to Display
[2020-05-09] MEDS: sodium chloride 0.9% 1,000 ML 30 ML IV (12:21)
[2020-05-09] MEDS: EPINEPHrine 1 mg/mL INJ (12:45)
--- NOTE | 2020-05-09 13:09 | ANE.PACU2 ---
Inpatient post-anesthesia follow up: Airway intact: Yes Vital signs: Temperature 97.5 F Pulse Rate [Right Radial] 75 Pulse Rate 54 Respiratory Rate 18 Blood Pressure [Le ft Arm] 139/75 Blood Pressure 118/65 Pulse Oximetry 98 Oxygen Delivery Me thod Room Air Oxygen Flow Rate Fraction of Inspir ed Oxygen Hydration adequate: Yes Nausea and vomiting: No Mental status: Baseline
--- NOTE | 2020-05-09 19:36 | P.PN_ITS ---
Subjective Subjective: Interval history: No fresh episode of dark tarry stool this morning. Patient underwent EGD today. He tolerated the procedure Well. Postprocedure no complication, he is tolerating diet. Vitals and labs reviewed. Medications: Reviewed: Yes Vitals/I&O/Wt Last Vital Signs Temp 98.6 F 05/09/20 15:16 Pulse 85 05/09/20 15:16 Resp 14 05/09/20 15:16 BP 123/61 05/09/20 15:16 Pulse Ox 94 05/09/20 15:16 05/09/20 05/09/20 05/09/20 06:59 14:59 22:59 Intake Total 1000 / 1000 1000 / 1000 Output Total 0 / 0 350 / 350 Balance 1000 / 1000 650 / 650 Weight last 48 hrs Weight 73.028 kg Physical Exam Const: COMMON NORMALS: patient oriented x3 HENMT: COMMON NORMALS: normocephalic, atraumatic, hearing grossly normal bilaterally and external ears normal HEAD & SCALP: normocephalic and atraumatic EXTERNAL EAR: Yes external ears normal Eye: COMMON NORMALS: no scleral icterus GENERAL EYE: appearance normal, both eyes and all related structures Chest: COMMONS NORMALS: normal inspection of the chest and normal palpation of entire chest wall CHEST: Yes Symmetrical chest wall rise Resp: COMMON NORMALS: normal respiratory effort, No retractions, No use of accessory muscles and clear to auscultation bilaterally EFFORT & INSPECTION: Yes symmetric chest movement AUSCULTATION: clear to auscultation bilaterally Cardio: COMMON NORMALS: regular rate, regular rhythm, S1 normal heart sound present, S2 normal heart sound present, No gallops present (Cardio), No murmurs present (Cardio), No rub (Cardio) and Peripheral pulses 2+ throughout RATE: regular rate RHYTHM: regular rhythm HEART SOUNDS: S1 normal heart sound present and S2 normal heart sound present PERIPHERAL PULSES: Peripheral pulses 2+ throughout GI: COMMON NORMALS: Normal to inspection, nondistended, normoactive bowel sounds present, Soft to palpation, non-tender, No hepatosplenomegaly present and no masses AUSCULTATION: Yes normoactive bowel sounds PALPATION: Yes Soft to palpation and Yes No hepatosplenomegaly present RECTAL EXAM: Yes deferred Extremity: COMMON NORMALS: no clubbing, cyanosis or edema and no pedal edema Neuro: COMMON NORMALS: patient oriented x3 Data : 05/09/20 04:27 05/09/20 04:27 A&P Assessment and plan (1) Acute upper gastrointestinal bleeding: came in with chief complaint of passing black tarry stools, for the last 3 days, he has been taking naproxen twice daily for years for his chronic back pain. Status post EGD: Small oozing duodenal ulcer. Detailed EGD report awaited. Continue Protonix 40 mg I.V Daily Status: Acute (2) Anemia: Anemia due to chronic blood loss. Monitor CBC Status: Acute (3) Hypertension: Continue lisinopril 20 mg orally daily. Status: Acute Additional A&P Information DVT PPX: ON SCD Code status : full code Disposition:Discharge to home in the morning. Attestations Medical Necessity Statement*: Patient patient needs to be in hospital for, GI bleed monitoring. Coding Level of Care Code Acute Laborer Construction Or Leak Gang for Hammad Toro Diagnoses Acute upper gastrointestinal bleeding K92.2 Anemia D64.9 Hypertension I10
[2020-05-09 20:57] LABS: Glucose Point of Care 72 mg/dL (70-110)
[2020-05-10] VITALS (17 sets, daily range): BP systolic 96–143; BP diastolic 54–77; PULSE 51–97; RESP 14–18; TEMP 36.1–37; O2SAT 93–100
[2020-05-10] MEDS: lisinopril 20 mg Tablet PO (09:28)
[2020-05-10] MEDS: cetirizine 10 mg Tablet PO (09:28)
[2020-05-10] MEDS: donepezil 5 MG Tablet 10 MG PO (09:28)
[2020-05-10] MEDS: escitalopram 10 mg Tablet 20 MG PO (09:28)
[2020-05-10] MEDS: CLONazepam 0.5 mg Tablet PO (09:28)
[2020-05-10] MEDS: fluticasone nasal spray 16gm Btl 1 SPRAY INTRANASAL ×2 (09:29→18:03)
[2020-05-10] MEDS: pantoprazole 40 mg SDV IVP (10:21)
[2020-05-10 11:04] LABS: Glucose Point of Care 111 mg/dL (70-110)
[2020-05-10] MEDS: haloperidol inj 5 mg/mL INJ 1 mL IM (11:23)
[2020-05-10] MEDS: sodium chloride 0.9% (100 ml) 100 ML ×2 (13:05→18:03)
--- NOTE | 2020-05-10 13:36 | P.PN_ITS ---
Subjective Subjective: Interval history: Patient was agitated this morning, for which, we had to give Haldol, after that he settled, his hemoglobin also dropped to 7.7 hence we transfused him 2 units. Vitals and labs have been reviewed. Medications: Reviewed: Yes Vitals/I&O/Wt Last Vital Signs Temp 97.7 F 05/10/20 12:40 Pulse 55 L 05/10/20 12:40 Resp 16 05/10/20 12:40 BP 109/57 05/10/20 12:00 Pulse Ox 97 05/10/20 12:00 05/09/20 05/10/20 05/10/20 22:59 06:59 14:59 Intake Total 240 / 1240 240 / 1480 720 / 720 Output Total 400 / 400 Balance 240 / 890 240 / 1130 320 / 320 Weight last 48 hrs Weight 73.028 kg Physical Exam Const: COMMON NORMALS: patient oriented x3 HENMT: COMMON NORMALS: normocephalic, atraumatic, hearing grossly normal bilaterally and external ears normal HEAD & SCALP: normocephalic and atraumatic EXTERNAL EAR: Yes external ears normal Eye: COMMON NORMALS: no scleral icterus GENERAL EYE: appearance normal, both eyes and all related structures Chest: COMMONS NORMALS: normal inspection of the chest and normal palpation of entire chest wall CHEST: Yes Symmetrical chest wall rise Resp: COMMON NORMALS: normal respiratory effort, No retractions, No use of accessory muscles and clear to auscultation bilaterally EFFORT & INSPECTION: Yes symmetric chest movement AUSCULTATION: clear to auscultation bilaterally Cardio: COMMON NORMALS: regular rate, regular rhythm, S1 normal heart sound present, S2 normal heart sound present, No gallops present (Cardio), No murmurs present (Cardio), No rub (Cardio) and Peripheral pulses 2+ throughout RATE: regular rate RHYTHM: regular rhythm HEART SOUNDS: S1 normal heart sound present and S2 normal heart sound present PERIPHERAL PULSES: Peripheral pulses 2+ throughout GI: COMMON NORMALS: Normal to inspection, nondistended, normoactive bowel sounds present, Soft to palpation, non-tender, No hepatosplenomegaly present and no masses AUSCULTATION: Yes normoactive bowel sounds PALPATION: Yes Soft to palpation and Yes No hepatosplenomegaly present RECTAL EXAM: Yes deferred : COMMON NORMALS: Yes no CVA tenderness BLADDER/KIDNEY EXAM: Yes no CVA tenderness Back/Pelvis: COMMON NORMALS: no CVA tenderness Extremity: COMMON NORMALS: no clubbing, cyanosis or edema and no pedal edema Neuro: COMMON NORMALS: patient oriented x3 Data : 05/09/20 04:27 05/09/20 04:27 A&P Assessment and plan (1) Anemia: Anemia due to chronic blood loss. Transfuse2 U PRBC as Hemoglobin dropped today in am to 7.7. Monitor CBC Status: Acute (2) Acute upper gastrointestinal bleeding: came in with chief complaint of passing black tarry stools, for the last 3 days, he has been taking naproxen twice daily for years for his chronic back pain. Status post EGD: Small oozing duodenal ulcer. Detailed EGD report awaited. Continue Protonix 40 mg I.V Daily Status: Acute (3) Hypertension: Continue lisinopril 20 mg orally daily. Status: Acute Additional A&P Information DVT PPX: ON SCD Code status : full code Disposition:Discharge to home in the morning. Attestations Medical Necessity Statement*: Patient needs to be in hospital for the m anagement of anemia. 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
--- NOTE | 2020-05-10 13:48 | PC.OT ---
OT NOTE: OT EVALUATION ATTEMPTED. NURSING REPORTS THAT HE HAS RECEIVED HALDOL DUE TO AGITATION AND IS CURRENTLY SLEEPING. WILL ATTEMPT AGAIN TOMORROW.
--- NOTE | 2020-05-10 13:59 | PC.NURSE ---
Patient is a/ox1 He is confused as to place, date and time. He gets agitated easily with redirection. At one point this AM patient pushed this nurse away when trying to help him return to the chair after an incontinent episode. Patient will not stay in chair or in bed and is a fall risk. He is pulling at his IV which i resecured with coban and reinforced with patient that it is needed for medication. Physician notified of agitation and failure to follow commands and physician gave order for Haldol IM and to transfuse 2 units of PRBC. CLINTW, FINANCE PROFESSIONAL
--- NOTE | 2020-05-10 15:04 | PC.RESP ---
Pulmonary Rehab information sent to patient.
[2020-05-10] MEDS: FUROsemide 10 mg/mL SDV 2mL 20 MG IVP (15:18)
[2020-05-10 17:08] LABS: Glucose Point of Care 72 mg/dL (70-110)
[2020-05-10 21:18] LABS: Glucose Point of Care 98 mg/dL (70-110)
[2020-05-11] VITALS: BP 142/71; PULSE 65; RESP 17; TEMP 36.6; O2SAT 95
[2020-05-11 04:00] VITALS: BP 128/63; PULSE 57; RESP 18; TEMP 36.7; O2SAT 93
[2020-05-11 06:23] LABS: Basophils # 0.1 10^3/uL (0.0-0.1); Eosinophils # 0.1 10^3/uL (0.0-0.8); Eosinophils % 1.7 %; Hematocrit 32.5 % (42.0-52.0); Hemoglobin 9.9 g/dL (11.7-16.6); Lymphocytes # 1.3 10^3/uL (0.8-4.8); Lymphocytes % 24.2 %; Mean Corpuscular HGB Conc 30.5 g/dL (30.0-36.0); Mean Corpuscular Hemoglobin 22.9 pg (28.0-34.0); Mean Corpuscular Volume 75.1 fL (80-94); Mean Platelet Volume 10.7 fL (7.4-10.4); Monocytes # 0.9 10^3/uL (0.2-0.9); Monocytes % 16.8 %; Neutrophils % 56.1 %; Nucleated Red Blood Cells % 0 %; Platelet Count 182 10^3/cmm (130-400); Red Blood Count 4.33 10^6/uL (4.1-5.3); Red Cell Distribution Width 18.6 % (12.1-15.1); White Blood Count 5.2 10^3/uL (4.0-10.0)
[2020-05-11 07:49] VITALS: BP 153/87; PULSE 60; RESP 18; TEMP 36.8; O2SAT 95
[2020-05-11] MEDS: CLONazepam 0.5 mg Tablet PO (09:00)
[2020-05-11] MEDS: escitalopram 10 mg Tablet 20 MG PO (09:00)
[2020-05-11] MEDS: cetirizine 10 mg Tablet PO (09:00)
[2020-05-11] MEDS: donepezil 5 MG Tablet 10 MG PO (09:01)
[2020-05-11] MEDS: lisinopril 20 mg Tablet PO (09:01)
[2020-05-11] MEDS: fluticasone nasal spray 16gm Btl 1 SPRAY INTRANASAL (09:01)
--- NOTE | 2020-05-11 09:35 | PC.SOCIAL ---
IMM Page 2 of IMM explained to patient. Initialed, dated, and timed and placed in chart. Copy provided to patient.
[2020-05-11 11:10] VITALS: BP 146/68; PULSE 55; RESP 18; TEMP 36.4; O2SAT 97
[2020-05-11 11:10] LABS: Glucose Point of Care 69 mg/dL (70-110)
[2020-05-11] MEDS: pantoprazole 40 mg SDV IVP (11:18)
--- NOTE | 2020-05-11 12:27 | PM.DCS ---
Discharge Providers Date of Admission: 05/08/20 16:01 Date of Discharge: May 11, 2020 Attending Provider at Admission: Olegario Fontaine MD Attending Provider at Discharge: Olegario Fontaine MD Primary Care Provider: Sebastian Zafar MD Diagnoses at Discharge Discharge Diagnosis (1) Anemia: Status: Acute (2) Acute upper gastrointestinal bleeding: Status: Resolved (3) Hypertension: Status: Chronic (4) Mild cognitive impairment: Status: Acute Reason for Visit Reason for Visit: abnormal labs/possible anemia and stomach bleed Hospital Course Hospital Course: 79-year-old male with past medical history of hypertension, Ca prostate, obstructive sleep apnea, chronic back pain, came in with chief complaint of passing black tarry stools, for the last 3 days, he has been taking naproxen twice daily for years for his chronic back pain.He recently saw his PCP for black tarry stool, his naproxen was stopped.He was worked up for possible UGIB 2/2 to chronic NSAID use.He Underwent EGD which showed,small oozing duodenal ulcer,bleeding was stopped with epinephrine injection.He is being discharged home on protonix 40 mg oral daily.He was also transfused 2 u PRBC during this admission. Patient was discharged in stable condition.He will follow with his PCP as outpatient. Physical Exam Const: COMMON NORMALS: patient oriented x3 HENMT: COMMON NORMALS: normocephalic, atraumatic, hearing grossly normal bilaterally and external ears normal HEAD & SCALP: normocephalic and atraumatic EXTERNAL EAR: Yes external ears normal Eye: COMMON NORMALS: no scleral icterus GENERAL EYE: appearance normal, both eyes and all related structures Chest: COMMONS NORMALS: normal inspection of the chest and normal palpation of entire chest wall CHEST: Yes Symmetrical chest wall rise Resp: COMMON NORMALS: normal respiratory effort, No retractions, No use of accessory muscles and clear to auscultation bilaterally EFFORT & INSPECTION: Yes symmetric chest movement AUSCULTATION: clear to auscultation bilaterally Cardio: COMMON NORMALS: regular rate, regular rhythm, S1 normal heart sound present, S2 normal heart sound present, No gallops present (Cardio), No murmurs present (Cardio), No rub (Cardio) and Peripheral pulses 2+ throughout RATE: regular rate RHYTHM: regular rhythm HEART SOUNDS: S1 normal heart sound present and S2 normal heart sound present PERIPHERAL PULSES: Peripheral pulses 2+ throughout GI: COMMON NORMALS: Normal to inspection, nondistended, normoactive bowel sounds present, Soft to palpation, non-tender, No hepatosplenomegaly present and no masses AUSCULTATION: Yes normoactive bowel sounds PALPATION: Yes Soft to palpation and Yes No hepatosplenomegaly present RECTAL EXAM: Yes deferred Extremity: COMMON NORMALS: no clubbing, cyanosis or edema and no pedal edema Neuro: COMMON NORMALS: patient oriented x3 Discharge Data Data Completed and Pending: Completed Studies During Hospitalization Category Date Time Status CT abdomen pelvis w con* [id number] Stat Cat Scan 05/08/20 15:49 Completed Labs from last 24 hours 05/11/20 05/11/20 05/10/20 11:03 05:31 21:12 WBC 5.2 RBC 4.33 Hgb 9.9 L Hct 32.5 L MCV 75.1 L MCH 22.9 L MCHC 30.5 RDW 18.6 H Plt Count 182 MPV 10.7 H Neut % (Auto) 56.1 Lymph % (Auto) 24.2 Glades % (Auto) 16.8 Eos % (Auto) 1.7 Baso % (Auto) 1.0 Neut # (Auto) 2.90 Lymph # (Auto) 1.3 Glades # (Auto) 0.9 Eos # (Auto) 0.1 Baso # (Auto) 0.1 Nucleated RBC % (a uto) 0 Nucleated RBCs # 0.0 POC Glucose 69 98 Blood Type Rho(D) Type Antibody Screen Crossmatch 05/10/20 05/08/20 16:58 15:00 WBC RBC Hgb Hct MCV MCH MCHC RDW Plt Count MPV Neut % (Auto) Lymph % (Auto) Glades % (Auto) Eos % (Auto) Baso % (Auto) Neut # (Auto) Lymph # (Auto) Glades # (Auto) Eos # (Auto) Baso # (Auto) Nucleated RBC % (a uto) Nucleated RBCs # POC Glucose 72 Blood Type O Positive Rho(D) Type Positive Antibody Screen Negative Crossmatch See Detail Vitals: Last Vital Signs Temp 97.5 F L 05/11/20 11:10 Pulse 55 L 05/11/20 11:10 Resp 18 05/11/20 11:10 BP 146/68 05/11/20 11:10 Pulse Ox 97 05/11/20 11:10 Discharge Plan Discharge Patient Disposition: Home Condition: Stable Prescriptions: New Protonix 40 mg tablet,delayed release (DR/EC) 40 mg PO DAILY 56 Days RF: 0 Continued azelastine 137 mcg (0.1 %) aerosol,spray 1 spray INTRANASAL BID RF: 0 fluticasone propionate [Allergy Relief (fluticasone)] 50 mcg/actuation spray,suspension 1 spray INTRANASAL BID RF: 0 clonazepam 0.5 mg tablet 0.5 mg PO DAILY Qty: 30 RF: 5 donepezil 10 mg Tablet 10 mg PO DAILY RF: 0 irbesartan 150 mg Tablet See Rx Instructions .ROUTE .COMPLEX RF: 0 magnesium oxide 250 mg magnesium Tablet 250 mg PO DAILY RF: 0 escitalopram oxalate 20 mg Tablet 20 mg PO DAILY RF: 0 Zyrtec 10 mg Capsule 10 mg PO DAILY RF: 0 Multi Vitamin 9 mg iron/15 mL Liquid 9 mg PO DAILY RF: 0 dextroamphetamine-amphetamine 10 mg capsule,extended release 24hr 10 mg PO DAILY RF: 0 Discontinued naproxen [Naprosyn] 500 mg Tablet 500 mg PO BID PRN (Reason: Pain) RF: 0 Discharge Orders: Discharge Order (Routine); Ordered 05/11/20 Ordered By: Olegario Fontaine Referrals: Sebastian Zafar MD [Primary Care Provider] - 4-7 days (Please contact Dr. Zafar office on Wednesday to make an appointment to be seen with in 4 to 7 days. ) Discharge Diet: Regular Discharge Activity: Resume usual activity Patient Instructions: Pantoprazole (By mouth), GI Bleeding Discharge Date/Time: 05/11/20 16:52 Discharge Attestations Time Spent in Discharge Care*: greater than 30 min Specific Discharge Activities: Specific discharge activities: educating patient, educating and/or supporting family/caregiver, discussing with pcp/other providers, discussing with immigration case manager/social workers/dc planners and documenting/other paperwork Quality Metrics Clinical Quality Measures During this hospital stay, did patient experience: None Coding Level of Care Code Acute Spool Winder for Hammad Fwd Diagnoses Anemia D64.9 Acute upper gastrointestinal bleeding K92.2 Hypertension I10 Mild cognitive impairment G31.84
[2020-05-11 15:25] VITALS: BP 151/70; PULSE 86; RESP 18; TEMP 36.5; O2SAT 98
[2020-05-11 16:50] VITALS: BP 151/70; PULSE 86; RESP 18; TEMP 36.5; O2SAT 98
== END 2020-05-11 16:52 | disposition home or self-care (01) | DRG 379 ==
LOC: ER 15:57 → MEDSURG 17:39
PROVIDERS: Emergency Medicine; Family Medicine; Internal Medicine; Admitting Provider Internal Medicine; PCP Family Medicine; Visit Provider Internal Medicine
PROC: 0DJ08ZZ Inspection of Upper Intestinal Tract, Via Natural or Artificial Opening Endoscopic (ICD-10-PCS; CPT 43235; principal; 2020-05-09 12:00)
DX: K29.71 Gastritis, unspecified, with bleeding (principal); I10 Essential (primary) hypertension; D64.9 Anemia, unspecified; G47.33 Obstructive sleep apnea (adult) (pediatric); Z85.46 Personal history of malignant neoplasm of prostate; G89.29 Other chronic pain; M54.9 Dorsalgia, unspecified; Z79.1 Long term (current) use of non-steroidal anti-inflammatories (NSAID); E78.5 Hyperlipidemia, unspecified; F41.9 Anxiety disorder, unspecified; I35.1 Nonrheumatic aortic (valve) insufficiency; Z87.891 Personal history of nicotine dependence
CPT/HCPCS: 12345; 36415; 36416; 36430; 43255; 74177; 80048; 80053; 81003; 82962; 85025; 85610; 85730; 86850; 86900; 86920; 96372; 96375; 97110; 97116; 97161; 97165; 99283; C9113; J0171; J1630; J1940; J2704; J7030; P9016; Q9967

== ENCOUNTER 2021-11-05 11:46 | Outpatient (CLI) | payer MEDICARE, BC, SELFPAY ==
--- NOTE | 2021-11-05 12:02 | CT_ITS ---
WS: [id number] CT HEAD NONCONTRAST HISTORY: DISORIENTATION TECHNIQUE: Contiguous axial imaging performed through the brain in 2.5 mm imaging. Bone and soft tiss ue windows. Sagittal and coronal reformats reviewed. All CT scans at [facility] use at least one of these dose optimization techniques: automated exposure control; mA and/or kV adjustment per pa tient size (includes targeted exams where dose is matched to clinical indication); or iterative recon struction. DLP: 942.39 mGy.cm COMPARISON: MRI 11/08/2014 No acute intracranial hemorrhage, midline shift or mass effect. Moderate bilateral diffuse atrophy and mild chronic small vessel ischemic disease. Ventricles: Mild ventriculomegaly on the basis of atrophy. Lobulated soft tissue mass centered in the sella turcica measures 11 x 16 mm. This mass has been prev iously described on MRI from 11/08/2014 with only minimal increase in size. Consistent with a macroaden abraham of the pituitary gland. Paranasal sinuses: No air-fluid levels. Lobulated soft tissue mass in the RIGHT sphenoid sinus was al so present in 2015. Probably represents a small polyp or mucous retention cyst. Mastoid air cells: Well pneumatized. Calvarium and scalp: Skull is intact with no soft tissue edema or swelling. CT/CT head wo con* [id number] IMPRESSION: 1. No acute intracranial hemorrhage or edema. 2. Moderate atrophy and mild small vessel ischemic disease. 3. Long-term stability pituitary macroadenoma.
== END 2021-11-05 11:47 | disposition home or self-care (01) ==
LOC: RAD 11:51
PROVIDERS: PCP Family Medicine; Visit Provider Family Medicine
DX: R41.0 Disorientation, unspecified (principal); I67.82 Cerebral ischemia; G31.9 Degenerative disease of nervous system, unspecified; D35.2 Benign neoplasm of pituitary gland
CPT/HCPCS: 70450

== ENCOUNTER 2021-11-13 10:05 | Outpatient (CLI) | payer MEDICARE, BC, SELFPAY ==
--- NOTE | 2021-11-13 10:10 | FL_ITS ---
WS: [id number] Modified barium swallow, 11/13/2021 Clinical Data: Other dysphagia Comparison: None. Fluoroscopy time: 2min [id number] # of spot films: Findings: The patient demonstrated premature spillage during the oral phase. He exhibited poor mastication. The re was significant oral residue but it didn't clear. There is aspiration noted and chin tucking did n ot help. There is significant pharyngeal residue with multiple consistencies. The barium tablet passe d normally into the stomach. FL/FL barium swallow modifd [id number] Impression: 1. Premature spillage with oral phase and poor mastication. 2. Significant and pharyngeal residue with multiple consistencies. 3. Trace aspiration.
== END 2021-11-13 10:06 | disposition home or self-care (01) ==
LOC: RAD 10:07
PROVIDERS: PCP Family Medicine; Visit Provider Family Medicine
DX: R13.10 Dysphagia, unspecified (principal)
CPT/HCPCS: 74230; 92611

== ENCOUNTER 2021-11-20 09:16 | Outpatient (RCR) | payer MEDICARE, BC, SELFPAY | END 2021-11-20 23:59 | disposition home or self-care (01) | LOC: SST 09:16 | PROVIDERS: PCP Family Medicine; Referring Provider Family Medicine; Visit Provider Family Medicine | DX: F50.89 Other specified eating disorder (principal) | CPT/HCPCS: 92524; 92610 ==

== ENCOUNTER 2022-07-09 12:02 | Emergency (ER) | payer MEDICARE, BC, SELFPAY ==
[2022-07-09 12:10] VITALS: BP 159/97; PULSE 71; RESP 16; O2SAT 97
[2022-07-09 12:16] VITALS: TEMP 36.8
--- NOTE | 2022-07-09 12:37 | W.ED.PSYCHS ---
HPI - Psych General: Chief Complaint: Psychiatric Symptoms Stated Complaint: SI, Dementia Time Seen by Provider: 07/09/22 12:07 Source: patient and police Mode of arrival: other (Please department) History of Present Illness: History is provided by review of the Police Department records, patient, other secondary sources. Patient was transported by PD after receiving notification from the patient's spouse that he was threatening to hang himself. They have provided an affidavit to that effect upon their arrival. The patient reports that today he was in bed later than usual and his was doing her usual vacuuming the entire house. He states he became annoyed by the noise and told her that he did not want to be around anymore and was proceeded to the barn to hang himself. He states that she followed into the barn and asked him what he was doing any significant hang himself and get away from everything. He admits to feeling this for an unspecified amount of time. He states its either her way or the highway when referencing his . He denies any other symptoms at this time. He denies alcohol consumption. MD complaint: suicidal ideation Associated symptoms: Reports suicidal ideation Review of Systems Const: Denies: fever(s) or chills Eyes: Denies: change in vision ENMT: Denies: throat pain, odynophagia, nasal discharge or nasal congestion Card: Denies: chest pain or palpitations Resp: Denies: dyspnea, productive cough or non-productive cough GI: Denies: abdominal pain, nausea or vomiting : Denies: difficulty urinating, dysuria or urinary frequency Musc: Denies: neck pain, back pain, extremity pain or extremity swelling Skin/Breast: Denies: rash Neuro: Denies: headache(s), numbness in extremities or weakness in extremities Psych: Reports: hopelessness, loss of interest, memory loss and suicidal ideation PFS ED PFSH: Medical History Acute upper gastrointestinal bleeding Anemia Anemia due to GI blood loss Anxiety Aortic regurgitation Basal cell carcinoma Bursitis Dyslipidemia Hypercholesteremia Hypertension Hypertension Mild cognitive impairment YORDY on CPAP Pituitary macroadenoma Prostate CA Rectal fistula Rhinitis SOB (shortness of breath) on exertion Surgical History H/O shoulder surgery History of back surgery History of vocal cord polypectomy Family History Other Alzheimer disease Parkinson disease Social History Smoking and tobacco status: former smoker Physical Exam Narrative: EXAM NARRATIVE: Patient appears calm. He makes good eye contact. He answers questions readily when asked however loses train of his thought sometimes midsentence. He appears to be in no acute distress. Const: COMMON NORMALS: no acute distress, average body habitus and alert GENERAL APPEARANCE: cooperative, comfortable and well kempt HENMT: COMMON NORMALS: normocephalic, atraumatic, Normal nasal mucous membranes and turbinates present, moist oral mucous membranes and oropharynx normal HEAD & SCALP: normocephalic and atraumatic FACE & SINUS: normal facial exam NOSE: Normal nasal mucous membranes and turbinates present Eye: COMMON NORMALS: Equal, round and reactive pupils present, EOMs intact bilaterally and conjunctivae normal CONJUNCTIVA: Yes conjunctivae normal PUPIL: Yes Equal, round and reactive pupils present Neck/C-Spine: COMMON NORMALS: full ROM, no lymphadenopathy and Thyroid normal THYROID: Thyroid normal Chest: COMMONS NORMALS: normal inspection of the chest Resp: COMMON NORMALS: normal respiratory effort, No use of accessory muscles and clear to auscultation bilaterally AUSCULTATION: clear to auscultation bilaterally Cardio: COMMON NORMALS: regular rate, regular rhythm, No murmurs present (Cardio) and Peripheral pulses 2+ throughout RATE: regular rate RHYTHM: regular rhythm PERIPHERAL PULSES: Peripheral pulses 2+ throughout GI: COMMON NORMALS: Normal to inspection, nondistended, normoactive bowel sounds present and Soft to palpation PALPATION: Yes Soft to palpation : COMMON NORMALS: Yes no CVA tenderness BLADDER/KIDNEY EXAM: Yes no CVA tenderness Back/Pelvis: COMMON NORMALS: no CVA tenderness, thoracic and lumbar spine normal to inspection and no thoracic nor lumbar tenderness Extremity: COMMON NORMALS: normal to inspection, full ROM and capillary refill normal Neuro: COMMON NORMALS: moves all extremities, no focal motor deficits, no sensory deficits noted and gait normal SENSORIUM/ORIENTATION: Yes alert Psych: COMMON NORMALS: cooperative and speech normal APPEARANCE: Yes well kempt ATTITUDE: Yes calm ACTIVITY/MOTOR BEHAVIOR: Yes appropriate eye contact and Yes fidgeting SPEECH: Yes normal speech MOOD & AFFECT: Yes depressed mood and Yes Flat affect present THOUGHT PROCESS: Circumstantial thought process present THOUGHT CONTENT: Yes Suicidality present INSIGHT: Fair insight present (Psych) Skin: COMMON NORMALS: no rashes or lesions noted and no wounds GENERAL SKIN EXAM: no rashes or lesions noted Course Consultations: Consultation #1: Patient accepted at [facility] by protocol. Time: 18:05 Vital Signs: Vital signs: Vital Signs Temperature 98.2 F 07/09/22 12:16 Pulse Rate 71 07/09/22 12:10 Respiratory Rate 16 07/09/22 12:10 Blood Pressure 159/97 07/09/22 12:10 Pulse Oximetry 97 07/09/22 12:10 Oxygen Delivery Me thod 07/09/22 12:10 MDM - Psych Medical Decision Making 81-year-old gentleman who was transported to the emergency part by Police Department after threats to kill himself with an intent to hang himself today that was expressed to his spouse as well as with police officers as well as to me. He does have a history of mild dementia and that is evident on his emergency department evaluation today that he displays some cognitive deficits. He certainly does have suicidal thoughts and is intent is unclear but certainly further mental health evaluation is warranted. He is medically cleared for such evaluation at this time. Medical Records I reviewed the patient's medical records. Lab Data I reviewed the patient's lab results. 07/09/22 12:40 07/09/22 12:40 Radiology Impressions Chest X-Ray 07/09/22 14:04 IMPRESSION: NO ACUTE PULMONARY CHANGE. Laboratory Results WBC 7.6 10^3/uL (4.0-10.0) 07/09/22 12:40 RBC 5.06 10^6/uL (4.1-5.3) 07/09/22 12:40 Hgb 15.0 g/dL (11.7-16.6) 07/09/22 12:40 Hct 45.2 % (42.0-52.0) 07/09/22 12:40 MCV 89.3 fl (80-94) 07/09/22 12:40 MCH 29.6 pg (28.0-34.0) 07/09/22 12:40 MCHC 33.2 g/dL (30.0-36.0) 07/09/22 12:40 RDW 13.5 % (12.1-15.1) 07/09/22 12:40 Plt Count 249 10^3/cmm (130-400) 07/09/22 12:40 MPV 10.1 fL (7.4-10.4) 07/09/22 12:40 Neut % (Auto) 68.6 % 07/09/22 12:40 Lymph % (Auto) 19.1 % 07/09/22 12:40 Winston % (Auto) 10.0 % 07/09/22 12:40 Eos % (Auto) 1.1 % 07/09/22 12:40 Baso % (Auto) 0.8 % 07/09/22 12:40 Neut # (Auto) 5.22 10^3/uL (1.8-7.7) 07/09/22 12:40 Lymph # (Auto) 1.5 10^3/uL (0.8-4.8) 07/09/22 12:40 Winston # (Auto) 0.8 10^3/uL (0.2-0.9) 07/09/22 12:40 Eos # (Auto) 0.1 10^3/uL (0.0-0.8) 07/09/22 12:40 Baso # (Auto) 0.1 10^3/uL (0.0-0.1) 07/09/22 12:40 Nucleated RBC % (auto) 0 % 07/09/22 12:40 Nucleated RBCs # 0.0 /100WBC 07/09/22 12:40 Sodium 140 mmol/L (136-145) 07/09/22 12:40 Potassium 3.6 mmol/L (3.5-5.1) 07/09/22 12:40 Chloride 104 mmol/L (98-107) 07/09/22 12:40 Carbon Dioxide 28 mmol/L (22-29) 07/09/22 12:40 Anion Gap 11.6 (5-19) 07/09/22 12:40 BUN 15 mg/dL (8-23) 07/09/22 12:40 Creatinine 0.8 mg/dL (0.7-1.2) 07/09/22 12:40 GFR Calculation Not Reportable 07/09/22 12:40 Glucose 89 mg/dL (65-115) 07/09/22 12:40 Calculated Osmolality 290 mOsm/kg (285-295) 07/09/22 12:40 Calcium 8.8 mg/dL (8.5-10.5) 07/09/22 12:40 Total Bilirubin 0.3 mg/dL (0.15-1.2) 07/09/22 12:40 AST 9 U/L (0-40) 07/09/22 12:40 ALT 6 U/L (0-41) 07/09/22 12:40 Alkaline Phosphatase 60 U/L (40-130) 07/09/22 12:40 Total Protein 5.9 g/dL (6.6-8.7) L 07/09/22 12:40 Albumin 3.7 g/dL (3.5-5.2) 07/09/22 12:40 Globulin 2.2 g/dL (1.3-4.6) 07/09/22 12:40 TSH 2.01 uIU/mL (0.27-4.20) 07/09/22 12:40 Free T4 0.82 ng/dL (0.82-1.77) 07/09/22 12:40 Free T3 2.0 PG/ML (2.0-4.4) 07/09/22 12:40 Urine Color Yellow (Yellow) 07/09/22 13:32 Urine Appearance Clear (CLEAR) 07/09/22 13:32 Urine pH 5 (5-7) 07/09/22 13:32 Ur Specific Whitman 1.020 (1.005-1.030) 07/09/22 13:32 Urine Protein Neg (Negative) 07/09/22 13:32 Urine Glucose (UA) Norm (Normal) 07/09/22 13:32 Urine Ketones Negative (Negative) 07/09/22 13:32 Urine Blood Neg (Negative) 07/09/22 13:32 Urine Nitrate Negative (Negative) 07/09/22 13:32 Urine Bilirubin Neg (Negative) 07/09/22 13:32 Urine Urobilinogen Neg mg/dL (Negative) 07/09/22 13:32 Ur Leukocyte Esterase Negative (Negative) 07/09/22 13:32 Salicylates < 0.3 mg/dL (3-10) L 07/09/22 12:40 Urine Opiates Screen Negative ng/mL (Negative) 07/09/22 13:32 Acetaminophen < 5.0 ug/mL (10-30) L 07/09/22 12:40 Ur Barbiturates Screen Negative ng/mL (Negative) 07/09/22 13:32 Ur Phencyclidine Scrn Negative ng/mL (Negative) 07/09/22 13:32 Ur Amphetamines Screen Negative ng/mL (Negative) 07/09/22 13:32 U Benzodiazepines Scrn Negative ng/mL (Negative) 07/09/22 13:32 Urine Cocaine Screen Negative ng/mL (Negative) 07/09/22 13:32 U Marijuana (THC) Screen Negative ng/mL (Negative) 07/09/22 13:32 Ethyl Alcohol 11 mg/dL (0-10) H 07/09/22 12:40 Influenza Type A Ag negative (Negative) 07/09/22 13:22 Influenza Type B Ag negative (Negative) 07/09/22 13:22 SARS-CoV-2 Ag (Rapid) negative (Negative) 07/09/22 13:22 Discharge Plan Discharge Patient Disposition: Xfer Short-Term Hosp Clinical Impression: Suicidal ideation, Mild cognitive impairment Condition: Stable Referrals: Sebastian Zafar MD [Primary Care Provider] - Coding Level of Care Code ED Maintainer Central Office for Chg Fwd Exam Comprehensive
[2022-07-09 12:45] LABS: Basophils # 0.1 10^3/uL (0.0-0.1); Basophils % 0.8 %; Eosinophils # 0.1 10^3/uL (0.0-0.8); Eosinophils % 1.1 %; Hematocrit 45.2 % (42.0-52.0); Lymphocytes # 1.5 10^3/uL (0.8-4.8); Lymphocytes % 19.1 %; Mean Corpuscular HGB Conc 33.2 g/dL (30.0-36.0); Mean Corpuscular Hemoglobin 29.6 pg (28.0-34.0); Mean Corpuscular Volume 89.3 fl (80-94); Mean Platelet Volume 10.1 fL (7.4-10.4); Monocytes # 0.8 10^3/uL (0.2-0.9); Neutrophils # 5.22 10^3/uL (1.8-7.7); Neutrophils % 68.6 %; Nucleated Red Blood Cells % 0 %; Platelet Count 249 10^3/cmm (130-400); Red Blood Count 5.06 10^6/uL (4.1-5.3); Red Cell Distribution Width 13.5 % (12.1-15.1); White Blood Count 7.6 10^3/uL (4.0-10.0)
[2022-07-09 13:05] LABS: Alanine Aminotransferase 6 U/L (0-41); Albumin Level 3.7 g/dL (3.5-5.2); Alkaline Phosphatase 60 U/L (40-130); Anion Gap 11.6 (5-19); Aspartate Amino Transferase 9 U/L (0-40); Blood Urea Nitrogen 15 mg/dL (8-23); Calcium 8.8 mg/dL (8.5-10.5); Carbon Dioxide 28 mmol/L (22-29); Chloride 104 mmol/L (98-107); Globulin 2.2 g/dL (1.3-4.6); Glucose 89 mg/dL (65-115); Osmolality Calculated 290 mOsm/kg (285-295); Potassium 3.6 mmol/L (3.5-5.1); Sodium 140 mmol/L (136-145); Total Bilirubin 0.3 mg/dL (0.15-1.2); Total Protein 5.9 g/dL (6.6-8.7)
--- NOTE | 2022-07-09 13:09 | PC.PHAR ---
pts gamal [phone] verified pts medications states the pt hasnt taken his meds in a month- states the pt has been flushing the meds down the toilet,hiding them or just refusing to take them-
[2022-07-09 13:12] LABS: Acetaminophen < 5.0 ug/mL (10-30); Salicylate < 0.3 mg/dL (3-10)
[2022-07-09 13:52] LABS: Influenza A by IFA negative (Negative); Influenza B by IFA negative (Negative)
[2022-07-09 13:53] LABS: SARS Covid-2 Antigen negative (Negative)
--- NOTE | 2022-07-09 14:04 | XR_ITS ---
WS: [id number] EXAMINATION: XR chest 1V [id number] REASON FOR EXAM: psych clearance COMPARISON: 10/07/2021 ORDER DATE: 07/09/2022 2:04 PM FINDINGS: There are scattered parenchymal and perihilar granulomatous calcifications. The cardiac and mediastin al outlines are unremarkable. There are no pleural effusions. There is calcific aortic change. Degene rative spine changes are present. XR/XR chest 1V [id number] IMPRESSION: NO ACUTE PULMONARY CHANGE.
[2022-07-09 14:40] LABS: Alcohol Level 11 mg/dL (0-10); Free T4 Free Thyroxine 0.82 ng/dL (0.82-1.77); Thyroid Stimulating Hormone 2.01 uIU/mL (0.27-4.20)
--- NOTE | 2022-07-09 14:56 | ECG_ITS ---
[facility] Test Date: 2022-07-09 Pat Name: Uche Weinberg Department: Room: Gender: Male Customer Operations Representative: : 1940 Requested By: Ned Bejarano Order Number: [id number] Gilmar MD: Franky Doyle M.D. Measurements Intervals Ross Rate: 62 P: 17 WV: 168 QRS: -11 QRSD: 79 T: 54 QT: 428 QTc: 437 Interpretive Statements SINUS RHYTHM WITH SINUS ARRHYTHMIA No previous ECG available for comparison Electronically Signed On 07-09-2022 15:29:59 IMPLEMENTATION COORDINATOR by Franky Doyle M.D. [id number]
[2022-07-09 15:35] LABS: Add Urine Microscopic? NO; Charge for UA Resulting for Rev
--- NOTE | 2022-07-09 15:43 | PC.NURSE ---
PT aware he will be transferred to locked unit with no smoking policy
[2022-07-09 15:50] LABS: Bilirubin Urine Neg (Negative); Blood Urine Neg (Negative); Glucose Urine UA Norm (Normal); Ketones Urine Negative (Negative); Leukocyte Esterase Urine Negative (Negative); Nitrate Urine Negative (Negative); Protein Urine Neg (Negative); Urine Appearance Clear (CLEAR); Urine Color Yellow (Yellow); Urobilinogen Urine Neg (Negative); pH Urine 5 (5-7)
[2022-07-09 15:59] LABS: Amphetamines Screen Urine Negative (Negative); Barbiturates Screen Urine Negative (Negative); Benzodiazepines Screen Urine Negative (Negative); Cocaine Screen Urine Negative (Negative); Opiate Screen Urine Negative (Negative); PCP Screen Urine Negative (Negative); THC Screen Urine Negative (Negative)
--- NOTE | 2022-07-09 17:11 | DCPLANNER ---
Addendum entered by Melissa Corona 07/09/22 17:14: [facility] called and spoke with patient, then spoke with case finisher stated that they facility would accept patient. Original Note: process engineering manager was asked to look for gerardo psych placement for patient. process engineering manager called the following facilities for possible placement: [facility] - faxed information 4:30 [place] - faxed information 4:30 [facility] - [facility] - patient is to [facility] - faxed information 4:35 [place] - no beds [facility] - no beds [facility] - no beds [facility] - [facility] beds [facility] - faxed information 4:40
[2022-07-09] MEDS: OLANZapine 5 mg TABLET 2.5 MG PO (17:59)
[2022-07-09 18:57] VITALS: BP 169/93; PULSE 64; RESP 16; O2SAT 98
== END 2022-07-09 19:00 | disposition short-term general hospital (02) ==
PROVIDERS: Emergency Provider Emergency Medicine; PCP Family Medicine
DX: R45.851 Suicidal ideations (principal); G31.84 Mild cognitive impairment of uncertain or unknown etiology; Z20.822 Contact with and (suspected) exposure to COVID-19; Z87.891 Personal history of nicotine dependence; E78.5 Hyperlipidemia, unspecified; I10 Essential (primary) hypertension; Z85.46 Personal history of malignant neoplasm of prostate
CPT/HCPCS: 71045; 80053; 80306; 80307; 81003; 84439; 84443; 84481; 85025; 87426; 87804; 93005; 99285

== ENCOUNTER → 2023-02-23 10:52 | Outpatient (BNVA) | payer MEDICARE, BC, SELFPAY | PROVIDERS: PCP Family Medicine; Visit Provider Podiatrist Foot & Ankle Surgery | DX: I73.9 Peripheral vascular disease, unspecified (principal); L60.3 Nail dystrophy | CPT/HCPCS: 11721; 99204 ==

== ENCOUNTER 2023-03-08 23:10 | Emergency (ER) | payer MEDICARE, BC, SELFPAY ==
[2023-03-08 23:11] VITALS: BP 91/64; PULSE 64; RESP 16; TEMP 37.1; O2SAT 93; BMI 21.2
--- NOTE | 2023-03-08 23:39 | CTR_ITS ---
PROCEDURE INFORMATION: Exam: CT Cervical Spine Without Contrast Exam date and time: 03/08/2023 11:49 PM Age: 82 years old Clinical indication: Injury or trauma; Fall; Blunt trauma; Additional info: Fall/trauma TECHNIQUE: Imaging protocol: Computed tomography of the cervical spine without contrast. Radiation optimization: All CT scans at this facility use at least one of these dose optimization techniques: automated exposure control; mA and/or kV adjustment per patient size (includes targeted exams where dose is matched to clinical indication); or iterative reconstruction. REPORTING DATA: Count of CT and Cardiac NM exams in prior 12 months: This patient has received 0 known CTs and 0 known cardiac nuclear medicine studies in the 12 months prior to the current study. COMPARISON: RF FL barium swallow modifd [id number] 11/13/2021 10:23 AM RADIATION DOSE METRICS: Total DLP (mGy-cm): 871.4 FINDINGS: Bones/joints: No acute fracture. There is partial straightening of cervical lordosis. There is grade 1 anterolisthesis of C7 on T1. Otherwise gross anatomic alignment is maintained. There is multilevel advanced degenerative disc disease. The spinal canal appears patent. There is moderate to severe multilevel neural foraminal stenosis secondary to foraminal osteophyte ridging and facet hypertrophy. Lungs: Lung apices are normal. Soft tissues: Unremarkable. CT/CT cervical spin wo con* [id number] IMPRESSION: No acute findings.
--- NOTE | 2023-03-08 23:39 | CTR_ITS ---
PROCEDURE INFORMATION: Exam: CT Head Without Contrast Exam date and time: 03/08/2023 11:49 PM Age: 82 years old Clinical indication: Injury or trauma; Fall; Blunt trauma (contusions or hematomas); Consciousness not specified; Additional info: Fall/traum/ams TECHNIQUE: Imaging protocol: Computed tomography of the head without contrast. Radiation optimization: All CT scans at this facility use at least one of these dose optimization techniques: automated exposure control; mA and/or kV adjustment per patient size (includes targeted exams where dose is matched to clinical indication); or iterative reconstruction. REPORTING DATA: Count of CT and Cardiac NM exams in prior 12 months: This patient has received 0 known CTs and 0 known cardiac nuclear medicine studies in the 12 months prior to the current study. COMPARISON: CT head wo con* [id number] 11/05/2021 12:22 PM RADIATION DOSE METRICS: Total DLP (mGy-cm): 1107.4 FINDINGS: Brain: There is mild small vessel disease. There is a sellar mass with suprasellar extension again seen without change. There is no evidence of acute parenchymal hemorrhage, extra-axial collection, or acute infarction. Cerebral ventricles: No ventriculomegaly. Paranasal sinuses: There is [id number] paranasal sinus disease. Mastoid air cells: Visualized mastoid air cells are well aerated. Bones/joints: Unremarkable. No acute fracture. Soft tissues: Unremarkable. CT/CT head wo con* [id number] IMPRESSION: 1. Mild small vessel disease. No evidence of acute intracranial process. 2. Sellar mass with suprasellar extension without change likely representing a pituitary macroadenoma.
--- NOTE | 2023-03-08 23:40 | W.ED.FALL ---
HPI - Fall General: Chief Complaint: Fall Stated Complaint: fall Time Seen by Provider: 03/08/23 23:16 History of Present Illness: 82-year-old male presents emergency department with his family members. Family member state that he has longstanding history of dementia and states that he had an accidental fall while at home. He does report that he hit his head either on the floor or on a table as he was falling. They deny loss of consciousness and states that the patient is at his baseline upon presentation to the emergency department. The family members state that they initially felt that he was more confused after the fall but wanted to have him evaluated. He denies headache or neck pain. Review of Systems General: Reports: ROS unobtainable due to mental status PFSH ED PFSH: Medical History Acute upper gastrointestinal bleeding Anemia Anemia due to GI blood loss Anxiety Aortic regurgitation Basal cell carcinoma Bursitis Dyslipidemia Hypercholesteremia Hypertension Hypertension Mild cognitive impairment YORDY on CPAP Pituitary macroadenoma Prostate CA Rectal fistula Rhinitis SOB (shortness of breath) on exertion Surgical History H/O shoulder surgery History of back surgery History of vocal cord polypectomy Family History Other Alzheimer disease Parkinson disease Social History Smoking and tobacco status: former smoker Physical Exam Const: COMMON NORMALS: no acute distress, average body habitus, alert and well nourished HENMT: COMMON NORMALS: normocephalic, atraumatic, external ears normal, Normal external nose present, Normal nasal mucous membranes and turbinates present and moist oral mucous membranes HEAD & SCALP: normocephalic and atraumatic NOSE: Normal external nose present and Normal nasal mucous membranes and turbinates present EXTERNAL EAR: Yes external ears normal Eye: COMMON NORMALS: Equal, round and reactive pupils present, EOMs intact bilaterally and normal visual gutierrez by confrontation PUPIL: Yes Equal, round and reactive pupils present Neck/C-Spine: COMMON NORMALS: full ROM, no lymphadenopathy, supple and no meningeal signs CERVICAL SPINE: Yes cervical ROM normal, No Cervical spine tenderness, No step off deformity and No Trapezius muscle tenderness Chest: COMMONS NORMALS: normal inspection of the chest and normal palpation of entire chest wall Resp: COMMON NORMALS: normal respiratory effort, No retractions and clear to auscultation bilaterally AUSCULTATION: clear to auscultation bilaterally Cardio: COMMON NORMALS: regular rate, regular rhythm, S1 normal heart sound present and S2 normal heart sound present RATE: regular rate RHYTHM: regular rhythm HEART SOUNDS: S1 normal heart sound present and S2 normal heart sound present GI: COMMON NORMALS: Normal to inspection, nondistended, normoactive bowel sounds present, Soft to palpation and non-tender PALPATION: Yes Soft to palpation : COMMON NORMALS: Yes no CVA tenderness BLADDER/KIDNEY EXAM: Yes no CVA tenderness Back/Pelvis: COMMON NORMALS: no CVA tenderness and thoraco-lumbar ROM normal Extremity: COMMON NORMALS: normal to inspection and full ROM Neuro: DAYANARA COMA SCALE: document GCS findings [place] coma scale eye opening: Spontaneous Dayanara coma scale verbal response: Orientated Dayanara coma scale motor response: Obey commands Dayanara coma scale total score: 15 SENSORIUM/ORIENTATION: Yes alert MENINGEAL SIGNS: Yes no meningeal signs Psych: COMMON NORMALS: mental status grossly normal, Normal thought process present and cooperative THOUGHT PROCESS: Normal thought process present Skin: COMMON NORMALS: no rashes or lesions noted GENERAL SKIN EXAM: no rashes or lesions noted Course Vital Signs: Vital signs: Vital Signs Temperature 98.7 F 03/08/23 23:11 Pulse Rate 64 03/09/23 01:18 Respiratory Rate 24 H 03/09/23 01:18 Blood Pressure 120/69 03/09/23 01:18 Pulse Oximetry 93 03/09/23 01:18 Oxygen Delivery Me thod Nasal Cannula 03/09/23 01:00 Oxygen Flow Rate 2 03/09/23 01:00 MDM - Fall Medical Decision Making Physical exam completed and documented, I did obtain a CT scan of his head as well as a CT cervical spine to rule out cervical spine abnormality and intracranial hemorrhage. Patient has been resting comfortably and is at his baseline. I advised the family members of return precautions and the patient was discharged home in stable condition and in no acute distress. The family members were provided the discharge instructions. Medical Records I reviewed the patient's medical records. Lab Data Radiology Impressions Cervical Spine CT 03/08/23 23:39 IMPRESSION: No acute findings. Head CT 03/08/23 23:39 IMPRESSION: 1. Mild small vessel disease. No evidence of acute intracranial process. 2. Sellar mass with suprasellar extension without change likely representing a pituitary macroadenoma. Imaging Data CT Head: My impression: No acute findings Discharge Plan Discharge Patient Disposition: Home Clinical Impression: Fall, Contusion of scalp Condition: Stable Prescriptions: No Action irbesartan 150 mg Tablet See Rx Instructions .ROUTE .COMPLEX Rx Instructions: 150 mg orally in the morning & 75 mg orally in the evening magnesium oxide 250 mg magnesium Tablet 250 mg PO DAILY PRN (Reason: unknown) escitalopram oxalate 20 mg Tablet 20 mg PO QAM dextroamphetamine-amphetamine 10 mg capsule,extended release 24hr 10 mg PO QAM multivitamin Tablet 1 tab PO DAILY PRN (Reason: unknown) quetiapine 25 mg tablet 25 mg PO QPM turmeric root extract 500 mg Tablet 500 mg PO QPM PRN (Reason: unknown) donepezil 10 mg tablet 10 mg PO BEDTIME clonazepam 0.5 mg tablet 0.5 mg PO BEDTIME Discharge Orders: Discharge ED (Routine); Ordered 03/09/23 Ordered By: Ravi Everett Referrals: Sebastian Zafar MD [Primary Care Provider] - Patient Instructions: Opioid Safety, Pain Management Coding Level of Care Code ED Oil Well Shooter for Hammad Toro
[2023-03-09] VITALS: BP 108/63; PULSE 66; RESP 20; O2SAT 96
[2023-03-09 00:30] VITALS: BP 115/68; PULSE 62; RESP 25; O2SAT 95
[2023-03-09 01:00] VITALS: BP 128/67; PULSE 70; RESP 20; O2SAT 94
[2023-03-09 01:18] VITALS: BP 120/69; PULSE 64; RESP 24; O2SAT 93
== END 2023-03-09 01:19 | disposition home or self-care (01) ==
PROVIDERS: Emergency Provider Internal Medicine; PCP Family Medicine
DX: S00.03XA Contusion of scalp, initial encounter (principal); Z87.891 Personal history of nicotine dependence; E78.5 Hyperlipidemia, unspecified; I10 Essential (primary) hypertension; Z85.46 Personal history of malignant neoplasm of prostate; F03.90 Unspecified dementia, unspecified severity, without behavioral disturbance, psychotic disturbance, mood disturbance, and anxiety; W18.39XA Other fall on same level, initial encounter
CPT/HCPCS: 70450; 72125; 99284

== ENCOUNTER 2023-04-06 10:41 | Emergency (ER) | payer MEDICARE, BC, SELFPAY ==
[2023-04-06 10:48] VITALS: BP 90/63; PULSE 73; RESP 14; O2SAT 95
--- NOTE | 2023-04-06 10:52 | CT_ITS ---
WS: [id number] CT HEAD TECHNIQUE: Noncontrast CT of the head obtained from the skullbase to the vertex. CLINICAL INFORMATION: fall COMPARISON: 03/08/2023 CT 03/08/2023, 11/05/2021, and MRI 2014 DLP: 1095.[address] scans at [facility] use at least one of these dose optimization techniques: automated e xposure control; mA and/or kV adjustment per patient size (includes targeted exams where dose is matc hed to clinical indication); or iterative reconstruction. FINDINGS: No evidence of intracranial hemorrhage or mass effect. Ventricular system and basal cisterns are ramey nt. Mild small vessel changes with moderate parenchymal volume loss. No extra-axial fluid collections . Low-attenuation sellar and suprasellar mass likely due to macroadenoma appears stable since the samuel or studies. This appears relatively stable since the MRI in 2015. Impingement on the optic chiasm. Mild mucosal thickening in the ethmoid air cells. Small retention cyst or polyp in the LEFT sphenoid sinus. Mastoid air cells well aerated. IMPRESSION: 1. No evidence of intracranial hemorrhage or mass effect. 2. Mild small vessel changes. Moderate parenchymal volume loss. 3. Vascular calcification. 4. Stable low-attenuation sella and suprasellar mass likely pituitary macroadenoma with slight impin gement on the optic chiasm unchanged from the prior studies. This could be followed up with MRI pitui tary on an elective basis. This appears stable since CT 11/05/2021. This also appears relatively stable from the MRI in 2015. 5. No other suspicious findings.
--- NOTE | 2023-04-06 10:52 | XRR_ITS ---
PROCEDURE INFORMATION: Exam: XR Chest Exam date and time: 04/06/2023 11:10 AM Age: 82 years old Clinical indication: Other: AMS TECHNIQUE: Imaging protocol: Radiologic exam of the chest. Views: 1 view. COMPARISON: CR XR chest 2V* [id number] 01/13/2023 2:42 PM FINDINGS: Lungs: The lung parenchyma is clear. Pleural spaces: No pneumothorax. No pleural effusion. Heart/Mediastinum: The cardiomediastinal silhouette is within normal limits. Bones/joints: Unremarkable. XR/XR chest 1V portable [id number] IMPRESSION: No acute cardiopulmonary abnormality.
--- NOTE | 2023-04-06 11:09 | ED_ITS ---
HPI - General Adult General: Chief complaint: General Medical Stated complaint: Hpertension Time Seen by Provider: 04/06/23 10:44 Source: patient Mode of arrival: ambulatory Limitations: no limitations History of Present Illness: 82-year-old male who here with EMS is helped him get up from the chair and it fell onto the floor. Patient has a history of dementia is quite confused here history is difficult from him history is from EMS he has had increasing weakness per EMS patient was hypotensive with them he is hypotensive here as well blood pressure currently is 92/79 he denies any pain currently no known fevers. Review of Systems General: Reports: ROS unobtainable due to mental status PFSH ED PFSH: Medical History Acute upper gastrointestinal bleeding Anemia Anemia due to GI blood loss Anxiety Aortic regurgitation Basal cell carcinoma Bursitis Dyslipidemia Hypercholesteremia Hypertension Hypertension Mild cognitive impairment YORDY on CPAP Pituitary macroadenoma Prostate CA Rectal fistula Rhinitis SOB (shortness of breath) on exertion Surgical History H/O shoulder surgery History of back surgery History of vocal cord polypectomy Family History Other Alzheimer disease Parkinson disease Social History Smoking and tobacco status: former smoker Physical Exam Const: COMMON NORMALS: negative for patient oriented x3 HENMT: COMMON NORMALS: normocephalic and atraumatic HEAD & SCALP: normocephalic and atraumatic Eye: COMMON NORMALS: Equal, round and reactive pupils present and EOMs intact bilaterally PUPIL: Yes Equal, round and reactive pupils present Neck/C-Spine: COMMON NORMALS: full ROM and supple Chest: COMMONS NORMALS: normal inspection of the chest and normal palpation of entire chest wall Resp: COMMON NORMALS: normal respiratory effort, No retractions, No use of accessory muscles and clear to auscultation bilaterally AUSCULTATION: clear to auscultation bilaterally Cardio: COMMON NORMALS: regular rate, regular rhythm and No murmurs present (Cardio) RATE: regular rate RHYTHM: regular rhythm GI: COMMON NORMALS: Normal to inspection, nondistended, normoactive bowel sounds present, Soft to palpation, non-tender and no masses PALPATION: Yes Soft to palpation Extremity: COMMON NORMALS: normal to inspection and full ROM Neuro: COMMON NORMALS: moves all extremities and no focal motor deficits; negative for patient oriented x3 Psych: COMMON NORMALS: Normal thought process present and cooperative; negative for mental status grossly normal THOUGHT PROCESS: Normal thought process present Skin: COMMON NORMALS: no rashes or lesions noted and no wounds GENERAL SKIN EXAM: no rashes or lesions noted Course Vital Signs: Vital signs: Vital Signs Pulse Rate 68 04/06/23 12:18 Respiratory Rate 14 04/06/23 10:48 Blood Pressure 117/71 04/06/23 13:18 Pulse Oximetry 94 04/06/23 13:18 Oxygen Delivery Me thod Room Air 04/06/23 13:18 MDM - General Adult Medical Decision Making Patient presents with generalized weakness his blood pressure here is much improved blood work is normal head CT is normal he is currently at his baseline he is able to stand with assistance of spoke to at length she like taking back home I feel he is stable for discharge she is to follow-up with PCP and return if worsening. Medical Records I reviewed the patient's medical records. Lab Data I reviewed the patient's lab results. 04/06/23 11:20 04/06/23 11:20 Radiology Impressions Chest X-Ray 04/06/23 10:52 IMPRESSION: No acute cardiopulmonary abnormality. Laboratory Results WBC 11.22 10^3/uL (3.29-11.43) 04/06/23 11:20 RBC 5.00 10^6/uL (3.85-5.65) 04/06/23 11:20 Hgb 13.70 g/dL (11.27-16.99) 04/06/23 11:20 Hct 42.5 % (37-53) 04/06/23 11:20 MCV 85.0 fl (82-101) 04/06/23 11:20 MCH 27.4 pg (27-33) 04/06/23 11:20 MCHC 32.2 g/dL (30-55) 04/06/23 11:20 RDW 14.3 % (12.1-15.1) 04/06/23 11:20 Plt Count 192 10^3/cmm (157-399) 04/06/23 11:20 MPV 9.8 fL (7.4-10.4) 04/06/23 11:20 Neut % (Auto) 69.3 % 04/06/23 11:20 Lymph % (Auto) 10.2 % 04/06/23 11:20 Castro % (Auto) 19.7 % 04/06/23 11:20 Eos % (Auto) 0.1 % 04/06/23 11:20 Baso % (Auto) 0.4 % 04/06/23 11:20 Neut # (Auto) 7.77 10^3/uL (1.8-7.7) H 04/06/23 11:20 Lymph # (Auto) 1.2 10^3/uL (0.8-4.8) 04/06/23 11:20 Castro # (Auto) 2.2 10^3/uL (0.2-0.9) H 04/06/23 11:20 Eos # (Auto) 0.0 10^3/uL (0.0-0.8) 04/06/23 11:20 Baso # (Auto) 0.1 10^3/uL (0.0-0.1) 04/06/23 11:20 Nucleated RBC % (auto) 0 % 04/06/23 11:20 Nucleated RBCs # 0.0 /100WBC 04/06/23 11:20 Sodium 137 mmol/L (136-145) 04/06/23 11:20 Potassium 4.0 mmol/L (3.5-5.1) 04/06/23 11:20 Chloride 100 mmol/L (98-107) 04/06/23 11:20 Carbon Dioxide 30 mmol/L (22-29) H 04/06/23 11:20 Anion Gap 11.0 (5-19) 04/06/23 11:20 BUN 19 mg/dL (8-23) 04/06/23 11:20 Creatinine 1.2 mg/dL (0.7-1.2) 04/06/23 11:20 GFR Calculation Not Reportable 04/06/23 11:20 Glucose 107 mg/dL (65-115) 04/06/23 11:20 Calculated Osmolality 287 mOsm/kg (285-295) 04/06/23 11:20 Lactic Acid 1.5 mmol/L (0.5-2.2) 04/06/23 11:20 Calcium 8.5 mg/dL (8.5-10.5) 04/06/23 11:20 Total Bilirubin 0.8 mg/dL (0.15-1.2) 04/06/23 11:20 AST 12 U/L (0-40) 04/06/23 11:20 ALT 6 U/L (0-41) 04/06/23 11:20 Alkaline Phosphatase 77 U/L (40-130) 04/06/23 11:20 Total Protein 6.0 g/dL (6.6-8.7) L 04/06/23 11:20 Albumin 3.7 g/dL (3.5-5.2) 04/06/23 11:20 Globulin 2.3 g/dL (1.3-4.6) 04/06/23 11:20 TSH 2.08 uIU/mL (0.27-4.20) 04/06/23 11:20 Urine Color Yellow (Yellow) 04/06/23 12:54 Urine Appearance Sl hazy (CLEAR) A 04/06/23 12:54 Urine pH 5 (5-7) 04/06/23 12:54 Ur Specific [place] 1.025 (1.005-1.030) 04/06/23 12:54 Urine Protein Trace (Negative) 04/06/23 12:54 Urine Glucose (UA) Norm (Normal) 04/06/23 12:54 Urine Ketones Negative (Negative) 04/06/23 12:54 Urine Blood 2+ (Negative) H 04/06/23 12:54 Urine Nitrate Negative (Negative) 04/06/23 12:54 Urine Bilirubin 1+ (Negative) H 04/06/23 12:54 Urine Urobilinogen Norm mg/dL (Negative) 04/06/23 12:54 Ur Leukocyte Esterase Negative (Negative) 04/06/23 12:54 Urine RBC 0-4 /hpf (0-2) H 04/06/23 12:54 Urine WBC 0-4 /hpf (0-5) H 04/06/23 12:54 Ur Squamous Epith Cells 0-4 /hpf (0-5) H 04/06/23 12:54 Amorphous Sediment 3+ /hpf 04/06/23 12:54 Urine Bacteria 1+ /hpf (NONE) H 04/06/23 12:54 Urine Mucus 1+ /hpf 04/06/23 12:54 EKG Data EKG 1: I personally reviewed and interpreted this EKG as follows: EKG interpretation date: 04/06/23 EKG interpretation time: 11:17 Interpretation: nsr hr [address] or t wave abnormalities qrs 84 qtc 438 Computer generated interpretation: Chest X-Ray 04/06/23 10:52 IMPRESSION: No acute cardiopulmonary abnormality. Discharge Plan Discharge Patient Disposition: Home Clinical Impression: Weakness, Fall Condition: Stable Prescriptions: No Action irbesartan 150 mg Tablet See Rx Instructions .ROUTE .COMPLEX Rx Instructions: 150 mg orally in the morning & 75 mg orally in the evening magnesium oxide 250 mg magnesium Tablet 250 mg PO DAILY PRN (Reason: unknown) escitalopram oxalate 20 mg Tablet 20 mg PO QAM dextroamphetamine-amphetamine 10 mg capsule,extended release 24hr 10 mg PO QAM multivitamin Tablet 1 tab PO DAILY PRN (Reason: unknown) quetiapine 25 mg tablet 25 mg PO QPM turmeric root extract 500 mg Tablet 500 mg PO QPM PRN (Reason: unknown) donepezil 10 mg tablet 10 mg PO BEDTIME clonazepam 0.5 mg tablet 0.5 mg PO BEDTIME Discharge Orders: Discharge ED (Routine); Ordered 04/06/23 Ordered By: Stevie Alejandra Referrals: Sebastian Zafar MD [Primary Care Provider] - 1-3 days Discharge Diet: Advance as tolerated Discharge Activity: Resume usual activity Patient Instructions: Weakness (ED) Coding Level of Care Code ED Registered Respiratory Therapist for Naag Cortez
--- NOTE | 2023-04-06 11:17 | ECG_ITS ---
[facility] Test Date: 2023-04-06 Pat Name: Uche Weinberg Department: Room: Gender: Male Payment Processor: : 1940 Requested By: Stevie Alejandra Order Number: [id number] Gilmar MD: Franky Doyle M.D. Measurements Intervals [place] Rate: 76 P: 55 CT: 206 QRS: -29 QRSD: 84 T: 71 QT: 407 QTc: 460 Interpretive Statements SINUS RHYTHM WITH OCCASIONAL SUPRAVENTRICULAR PREMATURE COMPLEXES BORDERLINE LEFT AXIS DEVIATION [QRS AXIS < -20] Compared to ECG 07/09/2022 14:56:12 Sinus arrhythmia no longer present Electronically Signed On 04-06-2023 12:04:30 CDT by Franky Doyle M.D. [email or web address]
[2023-04-06] MEDS: sodium chloride 0.9% 1,000 ML 999 ML IV (11:29)
[2023-04-06 11:42] LABS: Basophils # 0.1 10^3/uL (0.0-0.1); Basophils % 0.4 %; Eosinophils % 0.1 %; Hematocrit 42.5 % (37-53); Lymphocytes # 1.2 10^3/uL (0.8-4.8); Lymphocytes % 10.2 %; Mean Corpuscular HGB Conc 32.2 g/dL (30-55); Mean Corpuscular Hemoglobin 27.4 pg (27-33); Mean Platelet Volume 9.8 fL (7.4-10.4); Monocytes # 2.2 10^3/uL (0.2-0.9); Monocytes % 19.7 %; Neutrophils # 7.77 10^3/uL (1.8-7.7); Neutrophils % 69.3 %; Nucleated Red Blood Cells % 0 %; Platelet Count 192 10^3/cmm (157-399); Red Cell Distribution Width 14.3 % (12.1-15.1); White Blood Count 11.22 10^3/uL (3.29-11.43)
[2023-04-06 11:58] LABS: Lactic Sepsis W/Reflex 1.5 mmol/L (0.5-2.2)
[2023-04-06 12:18] VITALS: BP 99/66; PULSE 68
[2023-04-06 12:22] LABS: Alanine Aminotransferase 6 U/L (0-41); Albumin Level 3.7 g/dL (3.5-5.2); Alkaline Phosphatase 77 U/L (40-130); Aspartate Amino Transferase 12 U/L (0-40); Blood Urea Nitrogen 19 mg/dL (8-23); Calcium 8.5 mg/dL (8.5-10.5); Carbon Dioxide 30 mmol/L (22-29); Chloride 100 mmol/L (98-107); Globulin 2.3 g/dL (1.3-4.6); Glucose 107 mg/dL (65-115); Osmolality Calculated 287 mOsm/kg (285-295); Sodium 137 mmol/L (136-145); Thyroid Stimulating Hormone 2.08 uIU/mL (0.27-4.20); Total Bilirubin 0.8 mg/dL (0.15-1.2)
[2023-04-06 13:12] LABS: Bilirubin Urine 1+ (Negative); Blood Urine 2+ (Negative); Glucose Urine UA Norm (Normal); Ketones Urine Negative (Negative); Leukocyte Esterase Urine Negative (Negative); Nitrate Urine Negative (Negative); Protein Urine Trace (Negative); Specific Gravity, Urine 1.025 (1.005-1.030); Urine Appearance SL Hazy (CLEAR); Urine Color Yellow (Yellow); Urobilinogen Urine Norm (Negative); pH Urine 5 (5-7)
[2023-04-06 13:13] LABS: Add Urine Culture? Yes; Add Urine Microscopic? YES; Amorphous Sediment Urine 3+ /hpf; Bacteria Urine 1+ /hpf; Mucus Urine 1+ /hpf; RBC Urine 0-4 /hpf (0-2); Squamous Epithelial Cell Urine 0-4 /hpf (0-5); WBC Urine 0-4 /hpf (0-5)
[2023-04-06 13:18] VITALS: BP 117/71; O2SAT 94
== END 2023-04-06 13:54 | disposition home or self-care (01) ==
PROVIDERS: Emergency Provider Emergency Medicine; PCP Family Medicine
DX: R53.1 Weakness (principal); Z87.891 Personal history of nicotine dependence; E78.5 Hyperlipidemia, unspecified; I10 Essential (primary) hypertension; Z85.46 Personal history of malignant neoplasm of prostate
CPT/HCPCS: 70450; 71045; 80053; 81001; 83605; 84443; 85025; 87086; 93005; 96360; 99285; J7030

== ENCOUNTER → 2023-05-11 11:22 | Outpatient (BNVA) | payer MEDICARE, BC, SELFPAY | PROVIDERS: PCP Family Medicine; Visit Provider Podiatrist Foot & Ankle Surgery | DX: I73.9 Peripheral vascular disease, unspecified (principal); L60.3 Nail dystrophy | CPT/HCPCS: 11721 ==

== ENCOUNTER → 2023-09-07 10:49 | Outpatient (BNVA) | payer MEDICARE, SELFPAY | PROVIDERS: PCP Family Medicine; Visit Provider Podiatrist Foot & Ankle Surgery | DX: L60.8 Other nail disorders (principal); I73.9 Peripheral vascular disease, unspecified; L60.3 Nail dystrophy | CPT/HCPCS: 11721 ==

== ENCOUNTER → 2024-01-04 12:47 | Outpatient (BNVA) | payer MEDICARE, SELFPAY | PROVIDERS: PCP Family Medicine; Visit Provider Podiatrist Foot & Ankle Surgery | DX: L60.8 Other nail disorders (principal); I73.9 Peripheral vascular disease, unspecified; L60.3 Nail dystrophy | CPT/HCPCS: 11721 ==

== ENCOUNTER → 2024-04-04 10:48 | Outpatient (BNVA) | payer MEDICARE, SELFPAY | PROVIDERS: PCP Family Medicine; Visit Provider Podiatrist Foot & Ankle Surgery | DX: I73.9 Peripheral vascular disease, unspecified (principal); L60.3 Nail dystrophy | CPT/HCPCS: 11721 ==

== ENCOUNTER → 2024-04-24 09:41 | Outpatient (BNVA) | payer MEDICARE, SELFPAY | PROVIDERS: PCP Family Medicine; Referring Provider Family Medicine; Visit Provider Nurse Practitioner Family | DX: C44.619 Basal cell carcinoma of skin of left upper limb, including shoulder (principal); D48.5 Neoplasm of uncertain behavior of skin; L57.0 Actinic keratosis; L81.4 Other melanin hyperpigmentation; L82.1 Other seborrheic keratosis | CPT/HCPCS: 17000; 99203 ==

== ENCOUNTER → 2024-05-15 09:23 | Outpatient (BNVA) | payer MEDICARE, SELFPAY | PROVIDERS: PCP Family Medicine; Visit Provider Dermatology | DX: C44.619 Basal cell carcinoma of skin of left upper limb, including shoulder (principal) | CPT/HCPCS: 11606; 13121 ==